=== PATIENT | female | born 1990 | race African-American/Black ===

== ENCOUNTER 2020-12-10 17:51 | Emergency (ER) | payer SELFPAY ==
[2020-12-10] MEDS ORDERED: DIPHENHYDRAMINE 50 MG/ML VIAL ONE (19:29)
[2020-12-10] MEDS ORDERED: METHYLPREDNISOLONE 125 MG INJ ONE (19:29)
[2020-12-10] MEDS ORDERED: FAMOTIDINE 20 MG TAB ONE (19:30)
--- NOTE | 2020-12-10 20:07 | ER ---
Nurse's Notes [facility] Name: Andrew Jolly Age: 30 yrs Sex: Female : 1990 Arrival Date: 12/10/2020 Time: 17:53 Bed 13 Private MD: Diagnosis: Allergic urticaria Presentation: 12/10 18:26 Chief complaint: Patient states: starting last night i started itching. i took Benadryl tw2 around 4 pm today and it is not helping. I am at [facility] and its new so i dont know if it is my medication or what. but i normally take the same medicine so i dont think it is that. but really i am just itching all over. earlier i felt my throat was itching. Coronavirus screen: At this time, the client does not indicate any symptoms associated with coronavirus-19. Ebola Screen: Patient denies travel to an Ebola-affected area in the 21 days before illness onset. Onset: The symptoms/episode began/occurred yesterday. Anaphylaxis evaluation, the patient reports or I have noted the following symptoms which indicate a significant risk of anaphylaxis: lump in the throat which may suggest laryngeal edema urticaria. Initial Sepsis Screen: Does the patient meet any 2 criteria? No. Patient's initial sepsis screen is negative. Does the patient have a suspected source of infection? No. Patient's initial sepsis screen is negative. Risk Assessment: Do you want to hurt yourself or someone else? Patient reports no desire to harm self or others. Onset of symptoms was December 10, 2020. 18:26 Method Of Arrival: Ambulatory tw2 18:26 Acuity: JOYCE 4 tw2 Triage Assessment: 18:33 General: Appears in no apparent distress. uncomfortable, obese, Behavior is calm, tw2 cooperative, appropriate for age. Pain: Complains of pain in right leg and left leg. Derm: Reports increased itching. 18:33 Derm: Rash noted that is raised, urticaria, on right arm and left arm Reports "these tw2 raised itching spots all over my arms, legs and my back, and i also noticed them on my neck". 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 - Social history:: Smoking status: Patient denies any tobacco usage or history of. Screenin:42 Abuse screen: Denies threats or abuse. Nutritional screening: No deficits noted. tw2 Tuberculosis screening: No symptoms or risk factors identified. Fall Risk None identified. Assessment: 18:26 Respiratory: Airway is patent Respiratory effort is even, unlabored. tw2 20:00 Respiratory: No deficits noted. es2 Vital Signs: 18:26 BP 132 / 94; Pulse 99; Resp 17; Temp 98.2(TE); Pulse Ox 100% on R/A; Weight 133.81 kg tw2 (R); Height 5 ft. 7 in. (170.18 cm); 18:26 Body Mass Index 46.20 (133.81 kg, 170.18 cm) tw2 ED Course: 17:53 Patient arrived in ED. mr 18:30 Triage completed. tw2 18:33 Arm band placed on. tw2 18:34 Bed in low position. Call light in reach. tw2 18:39 Aditi Peña, TERESO is Primary Nurse. es2 18:41 Luke Gibson PA is PHCP. jr8 18:41 Apolinar Arora MD is Attending Physician. jr8 20:00 No provider procedures requiring assistance completed. es2 20:20 Patient did not have IV access during this emergency room visit. es2 Administered Medications: 19:11 Drug: Benadryl (diphenhydrAMINE) 50 mg Route: IM; Site: right deltoid; wg 19:11 Drug: Pepcid (famotidine) 20 mg Route: PO; wg 19:12 Drug: SOLU-Medrol (methylPREDNISolone sodium succinate) 125 mg Route: IM; Site: right wg deltoid; Outcome: 20:06 Discharge ordered by . jr8 21:04 Discharged to home ambulatory. es2 21:04 Condition: stable 21:04 Discharge instructions given to patient, Instructed on discharge instructions, Demonstrated understanding of medications, Prescriptions given X 1. 21:05 Patient left the ED. es2 Signatures: Fanny Phillips Josh, PA PA jr8 Marianna Decker RN RN tw2 Doug Ascencio RN wg Smith, Elizabeth, RN RN es2
--- NOTE | 2020-12-10 20:07 | EDPHYS ---
Physician Documentation [facility] Name: Andrew Jolly Age: 30 yrs Sex: Female : 1990 Arrival Date: 12/10/2020 Time: 17:53 Bed 13 Private MD: ED Physician Apolinar Arora HPI: 12/10 20:00 This 30 yrs old Black Female presents to ER via Ambulatory with complaints of Allergic jr8 Reaction. 20:00 This is a 30-year-old female that presented with hives to arms, chest, back. Patient jr8 stated that it started last night. Unable to identify source or reason as to the hives. Stated that it is continued though despite [id number] Benadryl. Denies any other symptoms at this time.. 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 - Social history:: Smoking status: Patient denies any tobacco usage or history of. ROS: 20:00 Eyes: Negative for injury, pain, redness, and discharge, ENT: Negative for injury, jr8 pain, and discharge, Neck: Negative for injury, pain, and swelling, Cardiovascular: Negative for chest pain, palpitations, and edema, Respiratory: Negative for shortness of breath, cough, wheezing, and pleuritic chest pain, Abdomen/GI: Negative for abdominal pain, nausea, vomiting, diarrhea, and constipation, Back: Negative for injury and pain, MS/Extremity: Negative for injury and deformity, Neuro: Negative for headache, weakness, numbness, tingling, and seizure. 20:00 Skin: Positive for rash. Exam: 20:00 Constitutional: This is a well developed, well nourished patient who is awake, alert, jr8 and in no acute distress. Cardiovascular: Regular rate and rhythm with a normal S1 and S2. No gallops, murmurs, or rubs. Normal PMI, no JVD. No pulse deficits. Respiratory: Lungs have equal breath sounds bilaterally, clear to auscultation and percussion. No rales, rhonchi or wheezes noted. No increased work of breathing, no retractions or nasal flaring. Abdomen/GI: Soft, non-tender, with normal bowel sounds. No distension or tympany. No guarding or rebound. No evidence of tenderness throughout. Back: No spinal tenderness. No costovertebral tenderness. Full range of motion. MS/ Extremity: Pulses equal, no cyanosis. Neurovascular intact. Full, normal range of motion. Neuro: Awake and alert, GCS 15, oriented to person, place, time, and situation. Cranial nerves II-XII grossly intact. Motor strength 5/5 in all extremities. Sensory grossly intact. Cerebellar exam normal. Normal gait. 20:00 Skin: rash a moderate rash is noted, rash can be described as urticarial, on the back, chest, right arm and left arm. Vital Signs: 18:26 BP 132 / 94; Pulse 99; Resp 17; Temp 98.2(TE); Pulse Ox 100% on R/A; Weight 133.81 kg tw2 (R); Height 5 ft. 7 in. (170.18 cm); 18:26 Body Mass Index 46.20 (133.81 kg, 170.18 cm) tw2 MDM: 18:41 Patient medically screened. jr8 20:00 Data reviewed: vital signs, nurses notes. Data interpreted: Pulse oximetry: on room air jr8 is 100 %. Interpretation: normal. Counseling: I had a detailed discussion with the patient and/or guardian regarding: the historical points, exam findings, and any diagnostic results supporting the discharge/admit diagnosis, the need for outpatient follow up, a family practitioner. Response to treatment: the patient's symptoms have markedly improved after treatment. Administered Medications: 19:11 Drug: Benadryl (diphenhydrAMINE) 50 mg Route: IM; Site: right deltoid; wg 19:11 Drug: Pepcid (famotidine) 20 mg Route: PO; wg 19:12 Drug: SOLU-Medrol (methylPREDNISolone sodium succinate) 125 mg Route: IM; Site: right wg deltoid; Disposition: 23:49 Co-signature as Attending Physician, Apolinar Arora MD I agree with the assessment and kdr plan of care. Disposition Summary: 12/10/20 20:06 Discharge Ordered Location: Home jr8 Problem: new jr8 Symptoms: have improved jr8 Condition: Stable jr8 Diagnosis - Allergic urticaria jr8 Followup: jr8 - With: Private Physician - When: 2 - 3 days - Reason: Recheck today's complaints, Continuance of care, Re-evaluation by your physician Discharge Instructions: - Discharge Summary Sheet jr8 - Hives jr8 Forms: - Medication Reconciliation Form jr8 - Thank You Letter jr8 - Antibiotic Education jr8 - Prescription Opioid Use jr8 Prescriptions: - Medrol (Gildardo) 4 mg Oral Tablets, Dose Pack - take 1 tablet by ORAL route as directed - follow package instructions; 1 jr8 packet; Refills: 0, Product Selection Permitted Signatures: Apolinar Arora MD MD kdr Roszak, Josh, PA PA jr8 Marianna Decker RN RN tw2 Doug Ascencio RN wg
[2020-12-10 21:24] VITALS: BP 132/94; TEMP 98.2; O2SAT 100
== END 2020-12-10 21:05 | disposition home or self-care (01) ==
LOC: ER 17:51
DX: L50.0 Allergic urticaria (principal); I10 Essential (primary) hypertension; Z88.1 Allergy status to other antibiotic agents
CPT/HCPCS: 96372; 99283; J1200; J2930

== ENCOUNTER 2020-12-11 20:21 | Emergency (ER) | payer SELFPAY ==
[2020-12-11 21:33] LABS: Urine Blood Negative (Negative); Urine Glucose Negative (Negative); Urine Protein Negative (Negative); Urine Specific Gravity 1.025 (1.005-1.030)
[2020-12-11 21:44] LABS: Urine Specific Gravity/Preg 1.025 (1.005-1.030)
[2020-12-11] MEDS ORDERED: METHYLPREDNISOLONE 125 MG INJ ONE (21:46)
[2020-12-11] MEDS ORDERED: ACETAMINOPHEN 500 MG TAB ONE (21:47)
[2020-12-11] MEDS ORDERED: FAMOTIDINE 20 MG TAB ONE (21:47)
[2020-12-11] MEDS ORDERED: DIPHENHYDRAMINE 25 MG TAB/CAP ONE (21:47)
--- NOTE | 2020-12-11 22:00 | RAD REPORT ---
EXAM DESCRIPTION: RAD - Knee Left 3 View - 12/11/2020 9:53 pm CLINICAL HISTORY: PAIN COMPARISON: No comparisons FINDINGS: No bone or joint abnormality is detected. No joint effusion present.
--- NOTE | 2020-12-11 22:01 | RAD REPORT ---
EXAM DESCRIPTION: RAD - Foot Left 3 View - 12/11/2020 9:53 pm CLINICAL HISTORY: PAIN COMPARISON: No comparisons FINDINGS: Small posterior calcaneal spur. No fracture or dislocation.
--- NOTE | 2020-12-11 23:10 | EDPHYS ---
Physician Documentation [facility] Name: Andrew Jolly Age: 30 yrs Sex: Female : 1990 Arrival Date: 12/11/2020 Time: 20:40 Bed 10 Private MD: ED Physician Hank Carroll HPI: 12/11 21:20 This 30 yrs old Black Female presents to ER via Wheelchair with complaints of Itching, cp Fall Injury, Knee Injury, Knee Pain. 21:20 The rash is located on the body diffusely. cp 21:20 The patient's rash thought to be caused by an unknown cause. cp 21:20 The rash can be described as itching. Onset: The symptoms/episode began/occurred cp yesterday, Patient reports she was seen in this ED yesterday for rash and prescribed medrol dose addison. Patient reports she sustained fall attempting to get into vehicle to come to ED causing injury and pain to left knee and left foot. 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 - Social history:: Smoking status: Patient denies any tobacco usage or history of. Patient/guardian denies using alcohol, street drugs. ROS: 21:30 Constitutional: Negative for body aches, chills, fever, poor PO intake. cp 21:30 Eyes: Negative for injury, pain, redness, and discharge. cp 21:30 ENT: Negative for drainage from ear(s), ear pain, sore throat, difficulty swallowing, difficulty handling secretions. 21:30 Cardiovascular: Negative for chest pain, edema, palpitations. 21:30 Respiratory: Negative for cough, shortness of breath, wheezing. 21:30 Abdomen/GI: Negative for abdominal pain, nausea, vomiting, and diarrhea. 21:30 MS/extremity: Positive for pain, of the left knee and left foot, Negative for decreased range of motion, deformity, paresthesias. 21:30 Skin: Positive for rash, diffusely. 21:30 Neuro: Negative for altered mental status, dizziness, headache, syncope, weakness. 21:30 All other systems are negative. Exam: 21:35 Constitutional: The patient appears in no acute distress, alert, awake, cp non-diaphoretic, non-toxic, well developed, well nourished, obese, uncomfortable. 21:35 Head/Face: Normocephalic, atraumatic. cp 21:35 ENT: External ear(s): are unremarkable, Nose: is normal, Mouth: Lips: moist, Oral mucosa: pink and intact, moist, Posterior pharynx: Airway: no evidence of obstruction, patent. 21:35 Chest/axilla: Inspection: normal. 21:35 Cardiovascular: Rate: normal, Rhythm: regular. 21:35 Respiratory: the patient does not display signs of respiratory distress, Respirations: normal, no use of accessory muscles, no retractions, labored breathing, is not present, Breath sounds: are clear throughout, no decreased breath sounds, no stridor, no wheezing. 21:35 Abdomen/GI: Exam negative for discomfort, distension, guarding, Inspection: abdomen appears normal. 21:35 Back: pain, is absent, ROM is normal. 21:35 Skin: rash can be described as hives, on the right arm and left arm. 21:35 Musculoskeletal/extremity: Extremities: grossly normal except: noted in the left knee: cp abrasion, pain, tenderness, There is no evidence of decreased ROM, deformity, noted in the left foot: pain, no evidence of decreased ROM, deformity, swelling, Pulses: noted to be 2+ in the left dorsalis pedis artery, the left leg Sensation intact. Vital Signs: 20:44 BP 149 / 97 LA Sitting (auto/lg); Pulse 89; Resp 18 S; Temp 98.6; Pulse Ox 100% ; sj1 Weight 131.54 kg (R); Height 5 ft. 7 in. (170.18 cm) (R); Pain 8/10; 21:15 BP 139 / 92; Pulse 91; Resp 19; Pulse Ox 100% on R/A; Pain 8/10; ld1 20:44 Body Mass Index 45.42 (131.54 kg, 170.18 cm) 1 Jaycob Coma Score: 21:09 Eye Response: spontaneous(4). Verbal Response: oriented(5). Motor Response: obeys sj1 commands(6). Total: 15. Trauma Score (Adult): 21:09 Eye Response: spontaneous(1); Verbal Response: oriented(1); Motor Response: obeys sj1 commands(2); Systolic BP: > 89 mm Hg(4); Respiratory Rate: 10 to 29 per min(4); Jaycob Score: 15; Trauma Score: 12 MDM: 21:07 Patient medically screened. cp 23:08 Data reviewed: vital signs, nurses notes, radiologic studies, plain films. cp 23:08 Differential diagnosis: allergic urticaria, hive, cellulitis, foot fracture, knee cp fracture. Test interpretation: by ED physician or midlevel provider: xrays of left knee negative for fracture and xrays of left foot negative for fracture. Counseling: I had a detailed discussion with the patient and/or guardian regarding: the historical points, exam findings, and any diagnostic results supporting the discharge/admit diagnosis, radiology results, to return to the emergency department if symptoms worsen or persist or if there are any questions or concerns that arise at home. Response to treatment: the patient's symptoms have markedly improved after treatment, VSS. Itching improved with meds. Will discharge to home for continued monitoring. 12/11 21:32 Order name: Urine Dipstick-Ancillary; Complete Time: 21:57 EDMS 12/11 21:34 Order name: Urine --Ancillary (enter results); Complete Time: 21:57 tt3 12/11 21:16 Order name: XRAY Knee LEFT 3 view; Complete Time: 22:56 cp 12/11 22:56 Interpretation: Report reviewed. 12/11 21:16 Order name: XRAY Foot LEFT 3 View; Complete Time: 22:56 cp 12/11 22:56 Interpretation: Reviewed report. 12/11 21:16 Order name: Urine Dipstick-Ancillary (obtain specimen); Complete Time: 21:33 cp 12/11 21:16 Order name: Urine Test (obtain specimen); Complete Time: 21:33 cp 12/11 21:57 Order name: Wound dressing; Complete Time: 21:59 cp 12/11 22:56 Order name: Alirio Wrap; Complete Time: 23:03 cp 12/11 22:56 Order name: Crutches; Complete Time: 23:03 cp Administered Medications: 21:33 Drug: SOLU-Medrol (methylPREDNISolone sodium succinate) 125 mg Route: IM; Site: right ld1 deltoid; 21:33 Drug: Benadryl (diphenhydrAMINE) 50 mg Route: PO; ld1 21:33 Drug: Pepcid (famotidine) 20 mg Route: PO; ld1 21:33 Drug: Tylenol 1000 mg Route: PO; ld1 Disposition Summary: 12/11/20 23:09 Discharge Ordered Location: Home cp Problem: new cp Symptoms: have improved cp Condition: Stable cp Diagnosis - Urticaria, unspecified cp - Pain in left foot - from fall cp - Abrasion, left knee cp - Pain in left knee - from fall cp Followup: cp - With: Clement Cespedes MD - When: 2 - 3 days - Reason: allergic hives Discharge Instructions: - Discharge Summary Sheet cp - Hives cp - Acute Knee Pain, Adult cp - Foot Pain cp Forms: - Medication Reconciliation Form cp - Thank You Letter cp - Antibiotic Education cp - Prescription Opioid Use cp Prescriptions: - Pepcid 20 mg Oral Tablet - take 1 tablet by ORAL route every 12 hours for 10 days; 20 tablet; Refills: 0, cp Product Selection Permitted - Prednisone 20 mg Oral Tablet - take 2 tablets by ORAL route once daily for 5 days then take 1 tablet daily for cp 3 days, then 1/2 tablet daily for 2 days. Start morning of 12-12-2020; 14 tablet; Refills: 0, Product Selection Permitted Signatures: Dispatcher [employer] EDUmair Alcantar PA PA cp Nayely Hernandez, RN RN ld1 Isabella George RN RN sj1
--- NOTE | 2020-12-11 23:10 | ER ---
Nurse's Notes [facility] Name: Andrew Jolly Age: 30 yrs Sex: Female : 1990 Arrival Date: 12/11/2020 Time: 20:40 Bed 10 Private MD: Diagnosis: Urticaria, unspecified;Pain in left foot-from fall;Abrasion, left knee;Pain in left knee-from fall Presentation: 12/11 20:44 Chief complaint: Patient states: was seen yesterday for itching/hives all over body. pt sj1 fell trying to get in van. abrasion to left knee. c/o knee and toe pain on left foot. denies LOC. Coronavirus screen: Vaccine status: Patient reports receiving the 1st dose of the Covid vaccine. Date October 10, 2020. Ebola Screen: Patient negative for fever greater than or equal to 101.5 degrees Fahrenheit, and additional compatible Ebola Virus Disease symptoms Patient denies exposure to infectious person. Patient denies travel to an Ebola-affected area in the 21 days before illness onset. No symptoms or risks identified at this time. Initial Sepsis Screen: Does the patient meet any 2 criteria? No. Patient's initial sepsis screen is negative. Does the patient have a suspected source of infection? No. Patient's initial sepsis screen is negative. Risk Assessment: Do you want to hurt yourself or someone else? Patient reports no desire to harm self or others. Onset of symptoms was December 09, 2020. 20:44 Method Of Arrival: Wheelchair sj1 20:44 Acuity: JOYCE 4 sj1 21:08 Care prior to arrival: None. Mechanism of Injury: Fall fell getting into van. Trauma sj1 event details: Injury occurred: December 11, 2020. Triage Assessment: 20:47 General: Appears uncomfortable, Behavior is calm, cooperative, appropriate for age. sj1 Pain: Complains of pain in left knee, left foot. 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 - Social history:: Smoking status: Patient denies any tobacco usage or history of. Patient/guardian denies using alcohol, street drugs. Screenin:49 Abuse screen: Denies threats or abuse. Denies injuries from another. Nutritional sj1 screening: No deficits noted. Tuberculosis screening: No symptoms or risk factors identified. Fall Risk Fall in past 12 months (25 points). Primary Survey: 21:07 NO uncontrolled hemorrhage observed. A: Airway: patent. Breathing/Chest: Respiratory sj1 pattern: regular, Respiratory effort: spontaneous, unlabored. Circulation: Pulses: palpable . Disability Alert. Exposure/Environment: Obvious injury(ies) are noted at this time: left knee, foot. Assessment: 21:15 General: Appears in no apparent distress. comfortable, Behavior is calm, cooperative, ld1 appropriate for age. Pain: Complains of pain in left knee and dorsum of left foot Pain does not radiate. Pain currently is 8 out of 10 on a pain scale. Quality of pain is described as stabbing, throbbing, Pain began 1 hour ago. Is continuous. Neuro: Level of Consciousness is awake, alert, obeys commands, Oriented to person, place, time, situation. Cardiovascular: Capillary refill < 3 seconds Patient's skin is warm and dry. Respiratory: Airway is patent Respiratory effort is even, unlabored, Respiratory pattern is regular, symmetrical. GI: Abdomen is non-distended, obese. : No signs and/or symptoms were reported regarding the genitourinary system. EENT: No signs and/or symptoms were reported regarding the EENT system. Derm: Hives to all extremities Reports itching. Musculoskeletal: No signs and/or symptoms reported regarding the musculoskeletal system. Vital Signs: 20:44 BP 149 / 97 LA Sitting (auto/lg); Pulse 89; Resp 18 S; Temp 98.6; Pulse Ox 100% ; sj1 Weight 131.54 kg (R); Height 5 ft. 7 in. (170.18 cm) (R); Pain 8/10; 21:15 BP 139 / 92; Pulse 91; Resp 19; Pulse Ox 100% on R/A; Pain 8/10; ld1 20:44 Body Mass Index 45.42 (131.54 kg, 170.18 cm) sj1 [place] Coma Score: 21:09 Eye Response: spontaneous(4). Verbal Response: oriented(5). Motor Response: obeys sj1 commands(6). Total: 15. Trauma Score (Adult): 21:09 Eye Response: spontaneous(1); Verbal Response: oriented(1); Motor Response: obeys sj1 commands(2); Systolic BP: > 89 mm Hg(4); Respiratory Rate: 10 to 29 per min(4); Jaycob Score: 15; Trauma Score: 12 ED Course: 20:40 Patient arrived in ED. wm 20:47 Triage completed. sj1 20:49 Patient has correct armband on for positive identification. sj1 20:55 Umair Acosta PA is PHCP. cp 20:55 Hank Carroll MD is Attending Physician. cp 21:09 Arm band placed on left wrist. Patient placed in an exam room. sj1 21:09 Patient maintains SpO2 saturation greater than 95% on room air. sj1 21:15 No provider procedures requiring assistance completed. ld1 21:53 XRAY Knee LEFT 3 view In Process Unspecified. EDMS 21:53 XRAY Foot LEFT 3 View In Process Unspecified. EDMS 21:58 Nayely Hernandez, TERESO is Primary Nurse. ld1 23:07 Clement Cespedes MD is Referral Physician. cp 23:35 Patient did not have IV access during this emergency room visit. ld1 Administered Medications: 21:33 Drug: SOLU-Medrol (methylPREDNISolone sodium succinate) 125 mg Route: IM; Site: right ld1 deltoid; 21:33 Drug: Benadryl (diphenhydrAMINE) 50 mg Route: PO; ld1 21:33 Drug: Pepcid (famotidine) 20 mg Route: PO; ld1 21:33 Drug: Tylenol 1000 mg Route: PO; ld1 Outcome: 23:09 Discharge ordered by . cp 23:11 Condition: stable ld1 23:11 Discharged to home ambulatory, with crutches. ld1 23:11 Discharge instructions given to patient, Instructed on discharge instructions, follow up and referral plans. medication usage, Demonstrated understanding of instructions, follow-up care, medications, Prescriptions given X 2. 23:35 Patient left the ED. ld1 Signatures: Dispatcher [employer] EDMS Umair Acosta PA PA cp Dibbern, Lauren, RN RN ld1 Radha Ramirez Sade, RN RN sj1 Corrections: (The following items were deleted from the chart) 21:07 20:44 Chief complaint: Patient states: was seen yesterday for itching/hives all over sj1 body. pt fell trying to get in van. abrasion to left knee. c/o knee and toe pain on left foot sj1
[2020-12-11 23:41] VITALS: TEMP 98.6; O2SAT 100
[2020-12-11 23:43] VITALS: BP 139/92
== END 2020-12-11 23:35 | disposition home or self-care (01) ==
LOC: ER 20:21
DX: S80.212A Abrasion, left knee, initial encounter (principal); L50.9 Urticaria, unspecified; M79.672 Pain in left foot; W17.89XA Other fall from one level to another, initial encounter; I10 Essential (primary) hypertension; F31.9 Bipolar disorder, unspecified; Z88.1 Allergy status to other antibiotic agents
CPT/HCPCS: 81003; 81025; 96372; 99284; J2930

== ENCOUNTER 2020-12-29 15:48 | Emergency (ER) | payer SELFPAY ==
--- NOTE | 2020-12-29 17:17 | RAD REPORT ---
EXAM DESCRIPTION: RAD - Chest Pa And Lat (2 Views) - 12/29/2020 5:04 pm CLINICAL HISTORY: Cough;Congestion COMPARISON: No comparisons FINDINGS: Lines: None. Lungs: No evidence of edema or pneumonia. Pleural: No significant pleural effusions or pneumothorax. Cardiac: The heart size is within normal limits. Bones: No acute fractures. Other: IMPRESSION: No acute cardiopulmonary disease.
--- NOTE | 2020-12-29 20:25 | EDPHYS ---
Physician Documentation [facility] Name: Andrew Jolly Age: 30 yrs Sex: Female : 1990 Arrival Date: 12/29/2020 Time: 15:48 Bed 11 Private MD: ED Physician Umair Miguel HPI: 12/29 20:45 This 30 yrs old Black Female presents to ER via Ambulatory with complaints of Chest kb Pain, Congestion. 20:45 The patient or guardian reports cough, that is intermittent, described as mild. Onset: kb The symptoms/episode began/occurred 4 day(s) ago. Severity of symptoms: At their worst the symptoms were mild, in the emergency department the symptoms are unchanged. Modifying factors: The symptoms are alleviated by nothing, the symptoms are aggravated by nothing. Associated signs and symptoms: Pertinent positives: chest pain, rhinorrhea, headache. The patient has not experienced similar symptoms in the past. The patient has not recently seen a physician. Pt reports chest pain, cough, congestion, runny nose and headache for 4-5 days. 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 - Social history:: Smoking status: Reported history of juuling and/or vaping. Patient denies any tobacco usage or history of. ROS: 20:42 Constitutional: Negative for fever, chills, and weight loss. kb 20:42 ENT: Positive for rhinorrhea, sinus congestion. 20:42 Cardiovascular: Positive for chest pain, Negative for edema, orthopnea, palpitations, paroxysmal nocturnal dyspnea. 20:42 Respiratory: Positive for cough, Negative for dyspnea on exertion, hemoptysis, orthopnea, pleurisy, shortness of breath, sputum production, wheezing. 20:42 Neuro: Positive for headache. 20:42 All other systems are negative. Exam: 20:42 Constitutional: This is a well developed, well nourished patient who is awake, alert, kb and in no acute distress. Head/Face: Normocephalic, atraumatic. ENT: Moist Mucous membranes Cardiovascular: Regular rate and rhythm with a normal S1 and S2. No gallops, murmurs, or rubs. No pulse deficits. Respiratory: Respirations even and unlabored. No increased work of breathing, no retractions or nasal flaring. Skin: Warm, dry with normal turgor. Normal color. MS/ Extremity: Pulses equal, no cyanosis. Neurovascular intact. Full, normal range of motion. Neuro: Awake and alert, GCS 15, oriented to person, place, time, and situation. Moves all extremities. Normal gait. Psych: Awake, alert, with orientation to person, place and time. Behavior, mood, and affect are within normal limits. Vital Signs: 16:13 BP 127 / 77; Pulse 78; Resp 17; Temp 98.0; Pulse Ox 100% ; Weight 131.09 kg; Height 5 ll1 ft. 7 in. (170.18 cm); Pain 9/10; 20:11 BP 132 / 74; jh5 20:11 Pulse 72; Resp 18; Pulse Ox 100% ; jh5 16:13 Body Mass Index 45.26 (131.09 kg, 170.18 cm) ll1 MDM: 17:57 Patient medically screened. kb 20:42 Data reviewed: vital signs, nurses notes. Data interpreted: Pulse oximetry: on room air kb is 100 %. Interpretation: normal. Counseling: I had a detailed discussion with the patient and/or guardian regarding: the historical points, exam findings, and any diagnostic results supporting the discharge/admit diagnosis, lab results, radiology results, the need for outpatient follow up, a family practitioner, to return to the emergency department if symptoms worsen or persist or if there are any questions or concerns that arise at home. 12/29 16:49 Order name: Flu kb 12/29 16:49 Order name: COVID-19 SARS RT PCR (Document "Date of Onset" if Symptomatic) kb 12/29 16:49 Order name: Chest Pa And Lat (2 Views) XRAY; Complete Time: 17:27 kb 12/29 16:50 Order name: Influenza Screen (A ; Complete Time: 19:38 EDMS 12/29 16:50 Order name: SARS-COV-2 RT PCR; Complete Time: 19:53 EDMS 12/29 19:28 Order name: Troponin (emerg Dept Use Only); Complete Time: 20:22 kb 12/29 17:00 Order name: EKG; Complete Time: 17:00 ll1 Administered Medications: No medications were administered Disposition: 12/30 11:39 Co-signature as Attending Physician, Umair Miguel MD I agree with the assessment and italo plan of care. Disposition Summary: 12/29/20 20:24 Discharge Ordered Location: Home kb Condition: Stable kb Diagnosis - Chest pain, unspecified kb Followup: kb - With: Emergency Department - When: As needed - Reason: Worsening of condition Followup: kb - With: Private Physician - When: 2 - 3 days - Reason: Recheck today's complaints, Continuance of care, Re-evaluation by your physician Discharge Instructions: - Discharge Summary Sheet kb - Nonspecific Chest Pain, Adult, [id number] kb Forms: - Medication Reconciliation Form kb - Thank You Letter kb - Antibiotic Education kb - Prescription Opioid Use kb Signatures: Dispatcher [employer] EDMS Darleen Castellon, SEATER ASSEMBLER-C SEATER ASSEMBLER-Umair Lopez MD MD cha Lewis, Lynsay, RN RN ll1
--- NOTE | 2020-12-29 20:25 | ER ---
Nurse's Notes [facility] Name: Andrew Jolly Age: 30 yrs Sex: Female : 1990 Arrival Date: 12/29/2020 Time: 15:48 Bed 11 Private MD: Diagnosis: Chest pain, unspecified Presentation: 12/29 16:13 Chief complaint: Patient states: CP, SOB for 5 days. No fever. Nasal congestion at 1 night. No N/V/D. At [facility]. Coronavirus screen: Vaccine status: Patient reports receiving the 2nd dose of the covid vaccine. Client denies travel out of the [place] in the last 14 days. congestion, difficulty breathing, fatigue, headache, muscle pain, runny nose, shaking with chills, shortness of breath, Client presents with at least one sign or symptom that may indicate coronavirus-19. Standard/surgical mask placed on the client. Ebola Screen: Patient denies travel to an Ebola-affected area in the 21 days before illness onset. Initial Sepsis Screen: Does the patient meet any 2 criteria? No. Patient's initial sepsis screen is negative. Does the patient have a suspected source of infection? Yes: Productive cough/pneumonia. Risk Assessment: Do you want to hurt yourself or someone else? Patient reports no desire to harm self or others. Onset of symptoms was December 23, 2020. 16:13 Method Of Arrival: Ambulatory [facility] 16:13 Acuity: JOYCE 3 ll1 Triage Assessment: 20:08 General: Appears in no apparent distress. comfortable, obese, Behavior is calm, jh5 cooperative. Pain: Denies pain. Cardiovascular: Reports chest pain, Capillary refill < 3 seconds Patient's skin is warm and dry. TRADEMARK PAR[place]GAL: 20:24 LMP 11/2020 jh5 Historical: - Allergies: 16:15 Bactrim; ll1 16:15 RISPERIDONE; ll1 - PMHx: 16:15 Bipolar disorder; depressive disorder; hidradnitssupperativa; Hypertensive disorder; ll1 - PSHx: 16:15 section; ll1 - Immunization history:: Client reports receiving the 2nd dose of the Covid vaccine. - Social history:: Smoking status: Reported history of juuling and/or vaping. Patient denies any tobacco usage or history of. Screenin:23 Abuse screen: Denies threats or abuse. Denies injuries from another. Nutritional jh5 screening: No deficits noted. Tuberculosis screening: No symptoms or risk factors identified. Fall Risk None identified. Assessment: 20:09 Pain: Pain does not radiate. Pain began 30 min ago. jh5 20:09 Reassessment: Pt is AAOX4, ambulatory, NAD, speech is clear, respirations even and jh5 unlabored. Pt is requesting crackers and tells staff; "THEY'RE IN THE FRONT, GO GET THEM. I BEEN HERE SINCE 3!". Pt is resting on stretcher in lowest, locked, position. Vital Signs: 16:13 BP 127 / 77; Pulse 78; Resp 17; Temp 98.0; Pulse Ox 100% ; Weight 131.09 kg; Height 5 ll1 ft. 7 in. (170.18 cm); Pain 9/10; 20:11 BP 132 / 74; jh5 20:11 Pulse 72; Resp 18; Pulse Ox 100% ; jh5 16:13 Body Mass Index 45.26 (131.09 kg, 170.18 cm) ll1 ED Course: 15:48 Patient arrived in ED. ds1 16:15 Triage completed. ll1 16:15 Arm band placed on. ll1 16:49 Darleen Castellon FNP-C is [facility]. kb 16:49 Umair Miguel MD is Attending Physician. kb 17:04 Chest Pa And Lat (2 Views) XRAY In Process Unspecified. EDMS 20:23 Patient has correct armband on for positive identification. Bed in low position. Side jh5 rails up X 1. 20:23 No provider procedures requiring assistance completed. Patient did not have IV access 5 during this emergency room visit. Patient maintains SpO2 saturation greater than 95% on room air. 20:24 Cardiac monitoring not applicable on this patient. jh5 Administered Medications: No medications were administered Outcome: 20:23 Condition: good jh5 20:23 Discharge instructions given to patient, friend. 20:24 Discharged to home ambulatory. jh5 20:24 Discharge ordered by . kb 20:28 Patient left the ED. 5 Signatures: Dispatcher [employer] EDAL Darleen Castellon FNP-C FNP-Ckb Sanford, Demi ds1 Israel Perez RN RN ll1 Yassine, Ramona, RN RN jh5
[2020-12-29 21:19] VITALS: TEMP 98; O2SAT 100
[2020-12-29 21:20] VITALS: BP 132/74
--- NOTE | 2020-12-30 11:48 | EKG ---
Test Date: 2020-12-29 Test Time: 16:19:03 [employer]: AGUSTÍN MEASUREMENT RESULTS: Intervals: Rate: 78 ME: 176 QRSD: 94 QT: 378 QTc: 430 [place]: P: 40 ME: 176 QRS: 87 T: 41 INTERPRETIVE STATEMENTS: Normal sinus rhythm Normal ECG No previous ECG available for comparison Electronically Signed On 12-30-20 11:46:13 CDT by Julian Vinson
--- OUTSIDE RECORDS SUMMARY | 2021-01-10 06:39 | XMS REPORT | Continuity of Care Document ---
:1990 Author Organization [facility] t Address [address] [place] [address] Care Team Providers Name Role Phone Pcp, Does Not Have A Primary Care Physician Only, Test Attending Clinician Unavailable Surekha COOPER, H Attending Clinician Rosalina IRBY Attending Clinician Unavailable Jacob Attending Clinician Unavailable Doctor Unassigned, Name Attending Clinician Unavailable Jacquelyn COOPER Attending Clinician Iraj Davison MD Attending Clinician Kirti Nelson MD Attending Clinician Po RN, A Attending Clinician Unavailable Arben Gamboa Attending Clinician Lisa RIDER, T Attending Clinician Unavailable Nurse, Urgent Attending Clinician Unavailable Unknown Attending Clinician Unavailable UNKNOWN Attending Clinician Unavailable Marlyn Samuel Attending Clinician Pcp, Does Not Have A Attending Clinician Nurse, Pcp Assessment Clinic Attending Clinician UnavailGer Lees MD Attending Clinician GER ZUNIGA Attending Clinician Unavailable STERLING Attending Clinician Unavailable Marita WEBER Attending Clinician Unavailable Physician, Primary or Family Admitting Clinician Unavailabl e Payers Payer Name Policy Type Policy Number Effective Date Expiration Date S ource Problems Condition Condition Condition Status Onset Resolution Last Treating Co mments Source Name Details Category Date Date Treatment Clinician Date Hidradenit Hidradenit Disease Active 2014-02 U nivers is is 1-14 [place] a of left 00 Medi hammad axilla axilla Branch Hidradenit Hidradenit Disease Active U nivers is is 2-26 [place] of suppurativ [place] 00 Medical [place] Obesity Obesity Disease Active Overview: Univ ers 5-31 Formattin ity of 00:00: g of this [place] 00 note Medical might be Branch different from the original. 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 seeing Dr. 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 seeing child adolescen t psychiatr y Allergies, Adverse Reactions, Alerts Allergy Allergy Status Severity Reaction(s) Onset Inactive Treating Comm ents Source Name Type Date Date Clinician sulfamet DA Active [place] VOMITING [facility] h[facility] 8-27 Clear 00:00: [place] 00 [facility] sulfamet DA Active [place] [facility] hoxazole 8-27 Clear 00:00: [place] 00 [facility] sulfamet DA Active [place] 2019-0 [facility] hoxazole 4-07 [place] 00:00: d 00 [facility] sulfamet DA Active [place] VOMIT[place] 2018-0 [facility] hoxazole 4-07 Clear 00:00: [place] 00 [facility] sulfamet DA Active [place] 2017-1 [facility] hoxazole 1-19 Clear 00:00: [place] 00 [facility] SULFAMET DRUG Active High NAUSEA ONLY 2006-0 Uni vers HOXAZOLE 5-30 ity of -TRIMETH 00:00: [place] OPRIM 00 [facility] Sulfamet Propensi Active Nausea Only 2006-0 U nivers hoxazole ty to 5-30 ity of -Trimeth adverse 00:00: [place] oprim reaction Medical s to [place] drug Social History Social Habit Start Date Stop Date Quantity Comments Source Exposure to Not sure [facility] SARS-CoV-2 [place] [facility] (event) [place] History of Cigarette Smoker Universi ty of tobacco use [facility] Alcohol intake 2019-01-06 2019-01-06 Current University 00:00:00 00:00:00 non-drinker of [facility] alcohol (finding) Branch Tobacco use and 2013-01-16 2013-01-16 Never used Universit y of exposure 00:00:00 00:00:00 [facility] Sex Assigned At [birth year] Universit y of 00:00:00 00:00:00 [facility] Smoking Status Start Date Stop Date Source Former smoker 2013-01-16 00:00:00 2013-01-16 00:00:00 Universi [facility] Medications Ordered Filled Start Stop Current Ordering Indication Dosage Frequency Signature Comments Components Source Medication Medication Date Date Medication? Clinician (SIG) Name Name nicotine Yes 1{patch 1 Patch, Un pee[place]e (NICODERM) 07-18 } Topical, ity o f 21 mg/24 hr 01:45: Administer [place] patch 1 00 over 24 Medical Patch Hours, [place] Q24H, First dose on [facility] 07/17/20 at 2044, Until Discontinu ed, Routine traZODone No 50mg 50 mg, Unive rs (DESYREL) 07-18 05-21 Oral, ity of tablet 50 01:45: 01:41 ONCE, 1 [place] mg 00 :00 dose, [facility] 07/17/20 at Branch 2045, Routine diphenhydrA 2020- No 25mg 25 mg, Uni vers MINE -17 07-20 Oral, ity of (BENADRYL) 17:15: 17:15 ONCE, 1 [place] tablet 25 00 :00 dose, [facility] al mg 07/17/20 at Branch 1215, JARET diphenhydrA 2020- No 50mg 50 mg, Uni vers MINE -17 07-20 Oral, ity of (BENADRYL) 02:15: 01:11 ONCE, 1 [place] tablet 50 00 :00 dose, Wed Medic al mg 07/16/20 at Branch 2115, JARET cefTRIAXone 2020- No 1000mg 1,000 mg, Univers (ROCEPHIN) 07-17 Intramuscu it y of injection 01:15: 00:14 lar, ONCE, [place] 1,000 mg 00 :00 1 dose, Medical [facility] Branch 07/16/20 at 2015, JARET
Re ason for Anti-Infec tive: Documented Infection< br>Documen licha Infection Site: Urine
D uration of Therapy: Other (see Comments) traMADoL 2020- No 50mg 50 mg, Univer s (ULTRAM) 3-13 03-13 Oral, ONCE ity of tablet 50 01:00: 00:12 NOW, 1 [place] mg 00 :00 dose, [facility] 05/09/20 at Branch 1900, Routine clindamycin Yes [id number] 300mg Take 1 Univers 300 mg 3-12 capsule by ity of capsule 00:00: mouth 4 [place] 00 (four) Medical times Branch daily. traMADoL Yes [id number] 50mg Take 1 Univers (ULTRAM) 50 3-12 tablet by ity of mg tablet 00:00: mouth [place] 00 every 6 Medical (six) Branch hours as needed for Pain (scale 4-6). Indication s: acute pain, abscess of right axilla, I&D in ED clindamycin Yes [id number] 300mg Take 1 Univers 300 mg 3-12 capsule by ity of capsule 00:00: mouth 4 [place] 00 (four) Medical times Branch daily. traMADoL Yes [id number] 50mg Take 1 Univers (ULTRAM) 50 3-12 tablet by ity of mg tablet 00:00: mouth [place] 00 every 6 Medical (six) Branch hours as needed for Pain (scale 4-6). Indication s: acute pain, abscess of right axilla, I&D in ED clindamycin Yes [id number] 300mg Take 1 Univers 300 mg 3-12 capsule by ity of capsule 00:00: mouth (four) Medical times Branch daily. traMADoL Yes [id number] 50mg Take 1 Univers (ULTRAM) 50 3-12 tablet by ity of mg tablet 00:00: mouth [place] 00 every 6 Medical (six) Branch hours as needed for Pain (scale 4-6). Indication s: acute pain, abscess of right axilla, I&D in ED clindamycin Yes [id number] 300mg Take 1 Univers 300 mg 3-12 capsule by ity of capsule 00:00: mouth (four) Medical times Branch daily. traMADoL Yes [id number] 50mg Take 1 Univers (ULTRAM) 50 3-12 tablet by ity of mg tablet 00:00: mouth [place] 00 every 6 Medical (six) Branch hours as needed for Pain (scale 4-6). Indication s: acute pain, abscess of right axilla, I&D in ED clindamycin Yes [id number] 300mg Take 1 Univers 300 mg 3-12 capsule by ity of capsule 00:00: mouth (four) Medical times Branch daily. traMADoL Yes [id number] 50mg Take 1 Univers (ULTRAM) 50 3-12 tablet by ity of mg tablet 00:00: mouth [place] 00 every 6 Medical (six) Branch hours as needed for Pain (scale 4-6). Indication s: acute pain, abscess of right axilla, I&D in ED clindamycin Yes [id number] 300mg Take 1 Univers 300 mg 3-12 capsule by ity of capsule 00:00: mouth (four) Medical times Branch daily. traMADoL Yes [id number] 50mg Take 1 Univers (ULTRAM) 50 3-12 tablet by ity of mg tablet 00:00: mouth [place] 00 every 6 Medical (six) Branch hours as needed for Pain (scale 4-6). Indication s: acute pain, abscess of right axilla, I&D in ED clindamycin 0 Yes [id number] 300mg Take 1 Univers 300 mg 3-12 capsule by ity of capsule 00:00: mouth 4 [place] 00 (four) Medical times Branch daily. traMADoL 0 Yes [id number] 50mg Take 1 Univers (ULTRAM) 50 3-12 tablet by ity of mg tablet 00:00: mouth [place] 00 every 6 Medical (six) Branch hours as needed for Pain (scale 4-6). Indication s: acute pain, abscess of right axilla, I&D in ED clindamycin 0 Yes [id number] 300mg Take 1 Univers 300 mg 3-12 capsule by ity of capsule 00:00: mouth 4 [place] 00 (four) Medical times Branch daily. traMADoL Yes [id number] 50mg Take 1 Univers (ULTRAM) 50 3-12 tablet by ity of mg tablet 00:00: mouth [place] 00 every 6 Medical (six) Branch hours as needed for Pain (scale 4-6). Indication s: acute pain, abscess of right axilla, I&D in ED benzonatate Yes [id number] 100mg Take 1 Univers 100 mg 2-19 capsule by ity of capsule 00:00: mouth 3 [place] 00 (three) Medical times Branch daily as needed for Cough. albuterol 0 Yes [id number] 2{puff} Inhale 2 Univers 90 2-19 Puffs ity of mcg/actuati 00:00: every 4 [place] inhaler 00 (four) Medical hours as Branch needed for Wheezing or Shortness of Breath. azithromyci 0 Yes [id number] 250mg Take 1 Univers n 250 mg 2-19 tablet by ity of tablet 00:00: mouth [place] 00 daily. Medical Take 500 Branch mg day 1, then 250 mg days 2 to 5. hydroCHLORO 2020-0 Yes [id number] 12.5mg Take 1 Univers thiazide 2-19 tablet by ity of 12.5 mg 00:00: mouth [place] tablet 00 daily. Medical Branch benzonatate 0 Yes [id number] 100mg Take 1 Univers 100 mg 2-19 capsule by ity of capsule 00:00: mouth 3 [place] 00 (three) Medical times Branch daily as needed for Cough. albuterol 0 Yes [id number] 2{puff} Inhale 2 Univers 90 2-19 Puffs ity of mcg/actuati 00:00: every 4 [place] inhaler 00 (four) Medical hours as Branch needed for Wheezing or Shortness of Breath. azithromyci 0 Yes [id number] 250mg Take 1 Univers n 250 mg 2-19 tablet by ity of tablet 00:00: mouth [place] 00 daily. Medical Take 500 Branch mg day 1, then 250 mg days 2 to 5. hydroCHLORO 2020-0 Yes [id number] 12.5mg Take 1 Univers thiazide 2-19 tablet by ity of 12.5 mg 00:00: mouth [place] tablet 00 daily. Medical Branch benzonatate 0 Yes [id number] 100mg Take 1 Univers 100 mg 2-19 capsule by ity of capsule 00:00: mouth 3 [place] 00 (three) Medical times Branch daily as needed for Cough. albuterol Yes [id number] 2{puff} Inhale 2 Univers 90 2-19 Puffs ity of mcg/actuati 00:00: every 4 [place] inhaler 00 (four) Medical hours as Branch needed for Wheezing or Shortness of Breath. azithromyci 0 Yes [id number] 250mg Take 1 Univers n 250 mg 2-19 tablet by ity of tablet 00:00: mouth [place] 00 daily. Medical Take 500 Branch mg day 1, then 250 mg days 2 to 5. hydroCHLORO 2020-0 Yes [id number] 12.5mg Take 1 Univers thiazide 2-19 tablet by ity of 12.5 mg 00:00: mouth [place] tablet 00 daily. Medical Branch benzonatate 2020-0 Yes [id number] 100mg Take 1 Univers 100 mg 2-19 capsule by ity of capsule 00:00: mouth 3 [place] 00 (three) Medical times Branch daily as needed for Cough. albuterol 2020-0 Yes [id number] 2{puff} Inhale 2 Univers 90 2-19 Puffs ity of mcg/actuati 00:00: every 4 [place] inhaler 00 (four) Medical hours as Branch needed for Wheezing or Shortness of Breath. azithromyci 2020-0 Yes [id number] 250mg Take 1 Univers n 250 mg 2-19 tablet by ity of tablet 00:00: mouth [place] 00 daily. Medical Take 500 Branch mg day 1, then 250 mg days 2 to 5. hydroCHLORO 2020-0 Yes [id number] 12.5mg Take 1 Univers thiazide 2-19 tablet by ity of 12.5 mg 00:00: mouth [place] tablet 00 daily. [facility] benzonatate 2020-0 Yes [id number] 100mg Take 1 Univers 100 mg 2-19 capsule by ity of capsule 00:00: mouth 3 [place] 00 (three) Medical times Branch daily as needed for Cough. albuterol 2020-0 Yes [id number] 2{puff} Inhale 2 Univers 90 2-19 Puffs ity of mcg/actuati 00:00: every 4 [place] inhaler 00 (four) Medical hours as Branch needed for Wheezing or Shortness of Breath. azithromyci 0 Yes [id number] 250mg Take 1 Univers n 250 mg 2-19 tablet by ity of tablet 00:00: mouth [place] 00 daily. Medical Take 500 Branch mg day 1, then 250 mg days 2 to 5. hydroCHLORO 2020-0 Yes [id number] 12.5mg Take 1 Univers thiazide 2-19 tablet by ity of 12.5 mg 00:00: mouth [place] tablet 00 daily. [facility] benzonatate 2020-0 Yes [id number] 100mg Take 1 Univers 100 mg 2-19 capsule by ity of capsule 00:00: mouth 3 [place] 00 (three) Medical times Branch daily as needed for Cough. albuterol 2020-0 Yes [id number] 2{puff} Inhale 2 Univers 90 2-19 Puffs ity of mcg/actuati 00:00: every 4 [place] inhaler 00 (four) Medical hours as Branch needed for Wheezing or Shortness of Breath. azithromyci 2020-0 Yes [id number] 250mg Take 1 Univers n 250 mg 2-19 tablet by ity of tablet 00:00: mouth [place] 00 daily. Medical Take 500 Branch mg day 1, then 250 mg days 2 to 5. hydroCHLORO 2020-0 Yes [id number] 12.5mg Take 1 Univers thiazide 2-19 tablet by ity of 12.5 mg 00:00: mouth [place] tablet 00 daily. [facility] benzonatate 2020-0 Yes [id number] 100mg Take 1 Univers 100 mg 2-19 capsule by ity of capsule 00:00: mouth 3 [place] 00 (three) Medical times Branch daily as needed for Cough. albuterol 0 Yes [id number] 2{puff} Inhale 2 Univers 90 2-19 Puffs ity of mcg/actuati 00:00: every 4 [place] inhaler 00 (four) Medical hours as Branch needed for Wheezing or Shortness of Breath. azithromyci 0 Yes [id number] 250mg Take 1 Univers n 250 mg 2-19 tablet by ity of tablet 00:00: mouth [place] 00 daily. Medical Take 500 Branch mg day 1, then 250 mg days 2 to 5. hydroCHLORO 2020-0 Yes [id number] 12.5mg Take 1 Univers thiazide 2-19 tablet by ity of 12.5 mg 00:00: mouth [place] tablet 00 daily. Medical Branch benzonatate 2020-0 Yes [id number] 100mg Take 1 Univers 100 mg 2-19 capsule by ity of capsule 00:00: mouth 3 [place] (three) Medical times Branch daily as needed for Cough. albuterol 2020-0 Yes [id number] 2{puff} Inhale 2 Univers 90 2-19 Puffs ity of mcg/actuati 00:00: every 4 [place] inhaler 00 (four) Medical hours as Branch needed for Wheezing or Shortness of Breath. azithromyci 2020-0 Yes [id number] 250mg Take 1 Univers n 250 mg 2-19 tablet by ity of tablet 00:00: mouth [place] 00 daily. Medical Take 500 Branch mg day 1, then 250 mg days 2 to 5. hydroCHLORO 2020-0 Yes [id number] 12.5mg Take 1 Univers thiazide 2-19 tablet by ity of 12.5 mg 00:00: mouth [place] tablet 00 daily. Medical Branch benzonatate 2020-0 Yes [id number] 100mg Take 1 Univers 100 mg 2-19 capsule by ity of capsule 00:00: mouth 3 [place] 00 (three) Medical times Branch daily as needed for Cough. albuterol 2020-0 Yes [id number] 2{puff} Inhale 2 Univers 90 2-19 Puffs ity of mcg/actuati 00:00: every 4 [place] inhaler 00 (four) Medical hours as Branch needed for Wheezing or Shortness of Breath. azithromyci 2020-0 Yes [id number] 250mg Take 1 Univers n 250 mg 2-19 tablet by ity of tablet 00:00: mouth [place] 00 daily. Medical Take 500 Branch mg day 1, then 250 mg days 2 to 5. hydroCHLORO 2020-0 Yes [id number] 12.5mg Take 1 Univers thiazide 2-19 tablet by ity of 12.5 mg 00:00: mouth [place] tablet 00 daily. Medical Branch benzonatate 0 Yes [id number] 100mg Take 1 Univers 100 mg 2-19 capsule by ity of capsule 00:00: mouth 3 [place] 00 (three) Medical times Branch daily as needed for Cough. albuterol 0 Yes [id number] 2{puff} Inhale 2 Univers 90 2-19 Puffs ity of mcg/actuati 00:00: every 4 [place] inhaler 00 (four) Medical hours as Branch needed for Wheezing or Shortness of Breath. azithromyci 0 Yes [id number] 250mg Take 1 Univers n 250 mg 2-19 tablet by ity of tablet 00:00: mouth [place] 00 daily. Medical Take 500 Branch mg day 1, then 250 mg days 2 to 5. hydroCHLORO 2020-0 Yes [id number] 12.5mg Take 1 Univers thiazide 2-19 tablet by ity of 12.5 mg 00:00: mouth [place] tablet 00 daily. Medical Branch benzonatate 2020-0 Yes [id number] 100mg Take 1 Univers 100 mg 2-19 capsule by ity of capsule 00:00: mouth 3 [place] 00 (three) Medical times Branch daily as needed for Cough. albuterol 2020-0 Yes [id number] 2{puff} Inhale 2 Univers 90 2-19 Puffs ity of mcg/actuati 00:00: every 4 [place] inhaler 00 (four) Medical hours as Branch needed for Wheezing or Shortness of Breath. azithromyci 2020-0 Yes [id number] 250mg Take 1 Univers n 250 mg 2-19 tablet by ity of tablet 00:00: mouth [place] 00 daily. Medical Take 500 Branch mg day 1, then 250 mg days 2 to 5. hydroCHLORO 2020-0 Yes [id number] 12.5mg Take 1 Univers thiazide 2-19 tablet by ity of 12.5 mg 00:00: mouth [place] tablet 00 daily. Medical Branch benzonatate 0 Yes [id number] 100mg Take 1 Univers 100 mg 2-19 capsule by ity of capsule 00:00: mouth 3 [place] 00 (three) Medical times Branch daily as needed for Cough. albuterol Yes [id number] 2{puff} Inhale 2 Univers 90 2-19 Puffs ity of mcg/actuati 00:00: every 4 [place] inhaler 00 (four) Medical hours as Branch needed for Wheezing or Shortness of Breath. azithromyci Yes [id number] 250mg Take 1 Univers n 250 mg 2-19 tablet by ity of tablet 00:00: mouth [place] 00 daily. Medical Take 500 Branch mg day 1, then 250 mg days 2 to 5. hydroCHLORO Yes [id number] 12.5mg Take 1 Univers thiazide 2-19 tablet by ity of 12.5 mg 00:00: mouth [place] tablet 00 daily. Medical Branch benzonatate Yes [id number] 100mg Take 1 Univers 100 mg 2-19 capsule by ity of capsule 00:00: mouth 3 [place] 00 (three) Medical times Branch daily as needed for Cough. albuterol Yes [id number] 2{puff} Inhale 2 Univers 90 2-19 Puffs ity of mcg/actuati 00:00: every 4 [place] inhaler 00 (four) Medical hours as Branch needed for Wheezing or Shortness of Breath. azithromyci 0 Yes [id number] 250mg Take 1 Univers n 250 mg 2-19 tablet by ity of tablet 00:00: mouth [place] 00 daily. Medical Take 500 Branch mg day 1, then 250 mg days 2 to 5. hydroCHLORO 2020-0 Yes [id number] 12.5mg Take 1 Univers thiazide 2-19 tablet by ity of 12.5 mg 00:00: mouth [place] tablet 00 daily. Medical Branch benzonatate 0 Yes [id number] 100mg Take 1 Univers 100 mg 2-19 capsule by ity of capsule 00:00: mouth 3 [place] 00 (three) Medical times Branch daily as needed for Cough. albuterol Yes [id number] 2{puff} Inhale 2 Univers 90 2-19 Puffs ity of mcg/actuati 00:00: every 4 [place] inhaler 00 (four) Medical hours as Branch needed for Wheezing or Shortness of Breath. azithromyci Yes [id number] 250mg Take 1 Univers n 250 mg 2-19 tablet by ity of tablet 00:00: mouth [place] 00 daily. Medical Take 500 Branch mg day 1, then 250 mg days 2 to 5. hydroCHLORO Yes [id number] 12.5mg Take 1 Univers thiazide 2-19 tablet by ity of 12.5 mg 00:00: mouth [place] tablet 00 daily. Medical Branch naproxen Yes [id number] 375mg Take 1 U nivers 375 mg EC 3-09 tablet by ity o f tablet 00:00: mouth (two) Medical times Branch daily as needed for Pain (scale 4-6). naproxen Yes [id number] 375mg Take 1 U nivers 375 mg EC 3-09 tablet by ity o f tablet 00:00: mouth (two) Medical times Branch daily as needed for Pain (scale 4-6). naproxen Yes [id number] 375mg Take 1 U nivers 375 mg EC 3-09 tablet by ity o f tablet 00:00: mouth (two) Medical times Branch daily as needed for Pain (scale 4-6). naproxen Yes [id number] 375mg Take 1 U nivers 375 mg EC 3-09 tablet by ity o f tablet 00:00: mouth (two) Medical times Branch daily as needed for Pain (scale 4-6). naproxen Yes [id number] 375mg Take 1 U nivers 375 mg EC 3-09 tablet by ity o f tablet 00:00: mouth (two) Medical times Branch daily as needed for Pain (scale 4-6). naproxen Yes [id number] 375mg Take 1 U nivers 375 mg EC 3-09 tablet by ity o f tablet 00:00: mouth 2 (two) Medical times Branch daily as needed for Pain (scale 4-6). naproxen Yes [id number] 375mg Take 1 U nivers 375 mg EC 3-09 tablet by ity o f tablet 00:00: mouth 2 (two) Medical times Branch daily as needed for Pain (scale 4-6). naproxen Yes [id number] 375mg Take 1 U nivers 375 mg EC 3-09 tablet by ity o f tablet 00:00: mouth 2 (two) Medical times Branch daily as needed for Pain (scale 4-6). naproxen Yes [id number] 375mg Take 1 U nivers 375 mg EC 3-09 tablet by ity o f tablet 00:00: mouth (two) Medical times Branch daily as needed for Pain (scale 4-6). naproxen Yes [id number] 375mg Take 1 U nivers 375 mg EC 3-09 tablet by ity o f tablet 00:00: mouth (two) Medical times Branch daily as needed for Pain (scale 4-6). naproxen Yes [id number] 375mg Take 1 U nivers 375 mg EC 3-09 tablet by ity o f tablet 00:00: mouth (two) Medical times Branch daily as needed for Pain (scale 4-6). naproxen Yes [id number] 375mg Take 1 U nivers 375 mg EC 3-09 tablet by ity o f tablet 00:00: mouth (two) Medical times Branch daily as needed for Pain (scale 4-6). naproxen Yes [id number] 375mg Take 1 U nivers 375 mg EC 3-09 tablet by ity o f tablet 00:00: mouth (two) Medical times Branch daily as needed for Pain (scale 4-6). naproxen Yes [id number] 375mg Take 1 U nivers 375 mg EC 3-09 tablet by ity o f tablet 00:00: mouth 2 (two) Medical times Branch daily as needed for Pain (scale 4-6). naproxen Yes [id number] 375mg Take 1 U nivers 375 mg EC 3-09 tablet by ity o f tablet 00:00: mouth 2 (two) Medical times Branch daily as needed for Pain (scale 4-6). acetaminoph Yes [id number] 1{tbl} Take 1 Univers en-codeine 1-10 tablet by ity of (TYLENOL-CO 00:00: mouth [place] DEINE #3) 00 every 6 Medical 300-30 mg (six) Branch tablet hours as needed for Pain (scale 4-6). acetaminoph Yes [id number] 1{tbl} Take 1 Univers en-codeine 1-10 tablet by ity of (TYLENOL-CO 00:00: mouth [place] DEINE #3) 00 every 6 Medical 300-30 mg (six) Branch tablet hours as needed for Pain (scale 4-6). acetaminoph Yes [id number] 1{tbl} Take 1 Univers en-codeine 1-10 tablet by ity of (TYLENOL-CO 00:00: mouth [place] DEINE #3) 00 every 6 Medical 300-30 mg (six) Branch tablet hours as needed for Pain (scale 4-6). acetaminoph Yes [id number] 1{tbl} Take 1 Univers en-codeine 1-10 tablet by ity of (TYLENOL-CO 00:00: mouth [place] DEINE #3) 00 every 6 Medical 300-30 mg (six) Branch tablet hours as needed for Pain (scale 4-6). acetaminoph Yes [id number] 1{tbl} Take 1 Univers en-codeine 1-10 tablet by ity of (TYLENOL-CO 00:00: mouth [place] DEINE #3) 00 every 6 Medical 300-30 mg (six) Branch tablet hours as needed for Pain (scale 4-6). acetaminoph Yes [id number] 1{tbl} Take 1 Univers en-codeine 1-10 tablet by ity of (TYLENOL-CO 00:00: mouth [place] DEINE #3) 00 every 6 Medical 300-30 mg (six) Branch tablet hours as needed for Pain (scale 4-6). acetaminoph Yes [id number] 1{tbl} Take 1 Univers en-codeine 1-10 tablet by ity of (TYLENOL-CO 00:00: mouth [place] DEINE #3) 00 every 6 Medical 300-30 mg (six) Branch tablet hours as needed for Pain (scale 4-6). acetaminoph Yes [id number] 1{tbl} Take 1 Univers en-codeine 1-10 tablet by ity of (TYLENOL-CO 00:00: mouth [place] DEINE #3) 00 every 6 Medical 300-30 mg (six) Branch tablet hours as needed for Pain (scale 4-6). acetaminoph Yes [id number] 1{tbl} Take 1 Univers en-codeine 1-10 tablet by ity of (TYLENOL-CO 00:00: mouth [place] DEINE #3) 00 every 6 Medical 300-30 mg (six) Branch tablet hours as needed for Pain (scale 4-6). acetaminoph Yes [id number] 1{tbl} Take 1 Univers en-codeine 1-10 tablet by ity of (TYLENOL-CO 00:00: mouth [place] DEINE #3) 00 every 6 Medical 300-30 mg (six) Branch tablet hours as needed for Pain (scale 4-6). acetaminoph Yes [id number] 1{tbl} Take 1 Univers en-codeine 1-10 tablet by ity of (TYLENOL-CO 00:00: mouth [place] DEINE #3) 00 every 6 Medical 300-30 mg (six) Branch tablet hours as needed for Pain (scale 4-6). acetaminoph Yes [id number] 1{tbl} Take 1 Univers en-codeine 1-10 tablet by ity of (TYLENOL-CO 00:00: mouth [place] DEINE #3) 00 every 6 Medical 300-30 mg (six) Branch tablet hours as needed for Pain (scale 4-6). acetaminoph Yes [id number] 1{tbl} Take 1 Univers en-codeine 1-10 tablet by ity of (TYLENOL-CO 00:00: mouth [place] DEINE #3) 00 every 6 Medical 300-30 mg (six) Branch tablet hours as needed for Pain (scale 4-6). acetaminoph Yes [id number] 1{tbl} Take 1 Univers en-codeine 1-10 tablet by ity of (TYLENOL-CO 00:00: mouth [place] DEINE #3) 00 every 6 Medical 300-30 mg (six) Branch tablet hours as needed for Pain (scale 4-6). acetaminoph 2019-0 Yes [id number] 1{tbl} Take 1 [facility] en-codeine 1-10 tablet by ity of (TYLENOL-CO 00:00: mouth [place] DEINE #3) 00 every 6 Medical 300-30 mg (six) Branch tablet hours as needed for Pain (scale 4-6). ketorolac 2018-0 Yes 10mg Take 1 Un[facility] s 10 mg 9-30 tablet by ity of tablet 00:00: mouth [place] 00 every 8 Medical (eight) Branch hours. ketorolac 2018-0 Yes 10mg Take 1 [facility] 10 mg 9-30 tablet by ity of tablet 00:00: mouth [place] 00 every 8 Medical (eight) Branch hours. ketorolac 2018-0 Yes 10mg Take 1 [facility] 10 mg 9-30 tablet by ity of tablet 00:00: mouth [place] 00 every 8 Medical (eight) Branch hours. ketorolac 2018-0 Yes 10mg Take 1 [facility] 10 mg 9-30 tablet by ity of tablet 00:00: mouth [place] 00 every 8 Medical (eight) Branch hours. ketorolac 2018-0 Yes 10mg Take 1 Un[facility] 10 mg 9-30 tablet by ity of tablet 00:00: mouth [place] 00 every 8 Medical (eight) Branch hours. ketorolac 2018-0 Yes 10mg Take 1 Un[facility] 10 mg 9-30 tablet by ity of tablet 00:00: mouth [place] 00 every 8 Medical (eight) Branch hours. ketorolac 2018-0 Yes 10mg Take 1 [facility] 10 mg 9-30 tablet by ity of tablet 00:00: mouth [place] 00 every 8 Medical (eight) Branch hours. ketorolac 2018-0 Yes 10mg Take 1 [facility] 10 mg 9-30 tablet by ity of tablet 00:00: mouth [place] 00 every 8 Medical (eight) Branch hours. ketorolac 2018-0 Yes 10mg Take 1 Univer [facility] 10 mg 9-30 tablet by ity of tablet 00:00: mouth [place] 00 every 8 Medical (eight) Branch hours. ketorolac 2018-0 Yes 10mg Take 1 [facility] 10 mg 9-30 tablet by ity of tablet 00:00: mouth [place] 00 every 8 Medical (eight) Branch hours. ketorolac 2018-0 Yes 10mg Take 1 Un[facility] 10 mg 9-30 tablet by ity of tablet 00:00: mouth [place] 00 every 8 Medical (eight) Branch hours. ketorolac 2018-0 Yes 10mg Take 1 Un[facility] 10 mg 9-30 tablet by ity of tablet 00:00: mouth [place] 00 every 8 Medical (eight) Branch hours. ketorolac 2018-0 Yes 10mg Take 1 Un[facility] 10 mg 9-30 tablet by ity of tablet 00:00: mouth [place] 00 every 8 Medical (eight) Branch hours. ketorolac 2018-0 Yes 10mg Take 1 Un[facility] 10 mg 9-30 tablet by ity of tablet 00:00: mouth [place] 00 every 8 Medical (eight) Branch hours. ketorolac 2018-0 Yes 10mg Take 1 Un[facility] 10 mg 9-30 tablet by ity of tablet 00:00: mouth [place] 00 every 8 Medical (eight) Branch hours. acetaminoph 2018-0 Yes 1{tbl} Take 1 [facility] [place] en-codeine 3-27 tablet by ity of 300-30 mg 00:00: mouth [place] tablet 00 every 4 Medical (four) Branch hours as needed (pain). acetaminoph 2018-0 Yes 1{tbl} Take 1 [facility] [place] en-codeine 3-27 tablet by ity of 300-30 mg 00:00: mouth [place] tablet 00 every 4 Medical (four) Branch hours as needed (pain). acetaminoph 2018-0 Yes 1{tbl} Take 1 [facility] [place] en-codeine 3-27 tablet by ity of 300-30 mg 00:00: mouth [place] tablet 00 every 4 Medical (four) Branch hours as needed (pain). acetaminoph 2018-0 Yes 1{tbl} Take 1 [facility] [place] en-codeine 3-27 tablet by ity of 300-30 mg 00:00: mouth [place] tablet 00 every 4 Medical (four) Branch hours as needed (pain). acetaminoph 2018-0 Yes 1{tbl} Take 1 [facility] [place] en-codeine 3-27 tablet by ity of 300-30 mg 00:00: mouth [place] tablet 00 every 4 Medical (four) Branch hours as needed (pain). acetaminoph 2018-0 Yes 1{tbl} Take 1 [facility] [place] en-codeine 3-27 tablet by ity of 300-30 mg 00:00: mouth [place] tablet 00 every 4 Medical (four) Branch hours as needed (pain). acetaminoph 2018-0 Yes 1{tbl} Take 1 [facility] [place] en-codeine 3-27 tablet by ity of 300-30 mg 00:00: mouth [place] tablet 00 every 4 Medical (four) Branch hours as needed (pain). acetaminoph 2018-0 Yes 1{tbl} Take 1 [facility] [place] en-codeine 3-27 tablet by ity of 300-30 mg 00:00: mouth [place] tablet 00 every 4 Medical (four) Branch hours as needed (pain). acetaminoph 2018-0 Yes 1{tbl} Take 1 [facility] [place] en-codeine 3-27 tablet by ity of 300-30 mg 00:00: mouth [place] tablet 00 every 4 Medical (four) Branch hours as needed (pain). acetaminoph 2017-0 Yes 1{tbl} Take 1 [facility] [place] en-codeine 3-27 tablet by ity of 300-30 mg 00:00: mouth [place] tablet 00 every 4 Medical (four) Branch hours as needed (pain). acetaminoph 2018-0 Yes 1{tbl} Take 1 [facility] [place] en-codeine 3-27 tablet by ity of 300-30 mg 00:00: mouth [place] tablet 00 every 4 Medical (four) Branch hours as needed (pain). acetaminoph 2018-0 Yes 1{tbl} Take 1 [facility] [place] en-codeine 3-27 tablet by ity of 300-30 mg 00:00: mouth [place] tablet 00 every 4 Medical (four) Branch hours as needed (pain). acetaminoph 2018-0 Yes 1{tbl} Take 1 [facility] [place] en-codeine 3-27 tablet by ity of 300-30 mg 00:00: mouth [place] tablet 00 every 4 Medical (four) Branch hours as needed (pain). acetaminoph 2018-0 Yes 1{tbl} Take 1 [facility] [place] en-codeine 3-27 tablet by ity of 300-30 mg 00:00: mouth [place] tablet 00 every 4 Medical (four) Branch hours as needed (pain). acetaminoph 2018-0 Yes 1{tbl} Take 1 [facility] [place] en-codeine 3-27 tablet by ity of 300-30 mg 00:00: mouth [place] tablet 00 every 4 Medical (four) Branch hours as needed (pain). Immunizations Ordered Filled Immunization Date Status Comments [facility] e Immunization Name Name [place] COVID-19 [place] COVID-19 2020-10-10 Completed Vaccine Vaccine 00:00:00 Influenza Virus 2012-12-14 Completed Universit y of Vaccine (3+ yrs) 00:00:00 [facility] Influenza Virus 2012-12-14 Completed Universit y of Vaccine (3+ yrs) 00:00:00 [facility] Influenza Virus 2012-12-14 Completed Universit y of Vaccine (3+ yrs) 00:00:00 [facility] Branch Influenza Virus 2012-12-14 Completed Universit y of Vaccine (3+ yrs) 00:00:00 [facility] Influenza Virus 2012-12-14 Completed Universit y of Vaccine (3+ yrs) 00:00:00 [facility] Influenza Virus 2012-12-14 Completed Universit y of Vaccine (3+ yrs) 00:00:00 [facility] Branch Influenza Virus 2012-12-14 Completed Universit y of Vaccine (3+ yrs) 00:00:00 [facility] Branch Influenza Virus 2012-12-14 Completed Universit y of Vaccine (3+ yrs) 00:00:00 [facility] Influenza Virus 2012-12-14 Completed Universit y of Vaccine (3+ yrs) 00:00:00 [facility] Branch Influenza Virus 2012-12-14 Completed Universit y of Vaccine (3+ yrs) 00:00:00 [facility] Branch Influenza Virus 2012-12-14 Completed Universit y of Vaccine (3+ yrs) 00:00:00 [facility] Branch Influenza Virus 2012-12-14 Completed Universit y of Vaccine (3+ yrs) 00:00:00 [facility] Branch Influenza Virus 2012-12-14 Completed Universit y of Vaccine (3+ yrs) 00:00:00 [facility] Branch Influenza Virus 2012-12-14 Completed Universit y of Vaccine (3+ yrs) 00:00:00 [facility] Branch Influenza Virus 2012-12-14 Completed Universit y of Vaccine (3+ yrs) 00:00:00 [facility] Td 1994-10-16 Completed University of 00:00:00 [facility] Td 1994-10-16 Completed University of 00:00:00 [facility] Td 1994-10-16 Completed University of 00:00:00 [place] [facility] Td 1994-10-16 Completed University of 00:00:00 [place] [facility] Td 1994-10-16 Completed University of 00:00:00 [place] [facility] Td 1994-10-16 Completed University of 00:00:00 [facility] Td 1994-10-16 Completed University of 00:00:00 [facility] Td 1994-10-16 Completed University of 00:00:00 [place] [facility] Td 1994-10-16 Completed [facility] of 00:00:00 [place] [facility] Td 1994-10-16 Completed University of 00:00:00 [place] [facility] Td 1994-10-16 Completed University of 00:00:00 [facility] Td 1994-10-16 Completed University of 00:00:00 [facility] Td 1994-10-16 Completed University of 00:00:00 [facility] Td 1994-10-16 Completed University of 00:00:00 [facility] Td 1994-10-16 Completed University of 00:00:00 [facility] DTP 1992-10-15 Completed University of 00:00:00 [facility] HIB 4 Dose Schedule 1992-10-15 Completed Unive rsity of 00:00:00 [facility] MMR 1992-10-15 Completed University of 00:00:00 [facility] Polio (IPV/OPV) 1992-10-15 Completed Universit y of 00:00:00 [facility] DTP 1992-10-15 Completed University of 00:00:00 [facility] HIB 4 Dose Schedule 1992-10-15 Completed Unive rsity of 00:00:00 [facility] MMR 1992-10-15 Completed University of 00:00:00 [facility] Polio (IPV/OPV) 1992-10-15 Completed Universit y of 00:00:00 [facility] DTP 1992-10-15 Completed University of 00:00:00 [facility] HIB 4 Dose Schedule 1992-10-15 Completed Unive rsity of 00:00:00 [facility] MMR 1992-10-15 Completed University of 00:00:00 [facility] Polio (IPV/OPV) 1992-10-15 Completed Universit y of 00:00:00 [facility] DTP 1992-10-15 Completed University of 00:00:00 [facility] HIB 4 Dose Schedule 1992-10-15 Completed Unive rsity of 00:00:00 [place] [facility] MMR 1992-10-15 Completed University of 00:00:00 [place] [facility] Polio (IPV/OPV) 1992-10-15 Completed Universit [facility] of 00:00:00 [place] [facility] DTP 1992-10-15 Completed University of 00:00:00 [place] [facility] HIB 4 Dose Schedule 1992-10-15 Completed Unive rsity of 00:00:00 [place] [facility] MMR 1992-10-15 Completed University of 00:00:00 [place] [facility] Polio (IPV/OPV) 1992-10-15 Completed Universit [facility] of 00:00:00 [place] [facility] DTP 1992-10-15 Completed University of 00:00:00 [place] [facility] HIB 4 Dose Schedule 1992-10-15 Completed Unive rsity of 00:00:00 [facility] MMR 1992-10-15 Completed University of 00:00:00 [facility] Polio (IPV/OPV) 1992-10-15 Completed Universit y of 00:00:00 [place] [facility] DTP 1992-10-15 Completed University of 00:00:00 [place] [facility] HIB 4 Dose Schedule 1992-10-15 Completed Unive rsity of 00:00:00 [place] [facility] MMR 1992-10-15 Completed University of 00:00:00 [place] [facility] Polio (IPV/OPV) 1992-10-15 Completed Universit y of 00:00:00 [facility] DTP 1992-10-15 Completed University of 00:00:00 [place] [facility] HIB 4 Dose Schedule 1992-10-15 Completed Unive rsity of 00:00:00 [facility] MMR 1992-10-15 Completed University of 00:00:00 [facility] Polio (IPV/OPV) 1992-10-15 Completed Univers[facility] of 00:00:00 [place] [facility] DTP 1992-10-15 Completed University of 00:00:00 [place] [facility] HIB 4 Dose Schedule 1992-10-15 Completed Unive rsity of 00:00:00 [facility] MMR 1992-10-15 Completed University of 00:00:00 [place] [facility] Polio (IPV/OPV) 1992-10-15 Completed Universit [facility] of 00:00:00 [facility] DTP 1992-10-15 Completed University of 00:00:00 [place] [facility] HIB 4 Dose Schedule 1992-10-15 Completed Unive rsity of 00:00:00 [facility] MMR 1992-10-15 Completed University of 00:00:00 [facility] Polio (IPV/OPV) 1992-10-15 Completed Universit y of 00:00:00 [facility] DTP 1992-10-15 Completed University of 00:00:00 [place] [facility] HIB 4 Dose Schedule 1992-10-15 Completed Unive rsity of 00:00:00 [facility] MMR 1992-10-15 Completed University of 00:00:00 [facility] Polio (IPV/OPV) 1992-10-15 Completed Universit y of 00:00:00 [facility] DTP 1992-10-15 Completed University of 00:00:00 [facility] HIB 4 Dose Schedule 1992-10-15 Completed Unive rsity of 00:00:00 [facility] MMR 1992-10-15 Completed University of 00:00:00 [facility] Polio (IPV/OPV) 1992-10-15 Completed Universit y of 00:00:00 [facility] DTP 1992-10-15 Completed University of 00:00:00 [place] [facility] HIB 4 Dose Schedule 1992-10-15 Completed Unive rsity of 00:00:00 [facility] MMR 1992-10-15 Completed University of 00:00:00 [place] [facility] Polio (IPV/OPV) 1992-10-15 Completed Universit y of 00:00:00 [facility] DTP 1992-10-15 Completed University of 00:00:00 [place] [facility] HIB 4 Dose Schedule 1992-10-15 Completed Unive rsity of 00:00:00 [facility] MMR 1992-10-15 Completed University of 00:00:00 [place] [facility] Polio (IPV/OPV) 1992-10-15 Completed Universit [facility] of 00:00:00 [place] [facility] DTP 1992-10-15 Completed University of 00:00:00 [place] [facility] HIB 4 Dose Schedule 1992-10-15 Completed Unive rsity of 00:00:00 [place] [facility] MMR 1992-10-15 Completed University of 00:00:00 [place] [facility] Polio (IPV/OPV) 1992-10-15 Completed Universit [facility] of 00:00:00 [place] [facility] Polio (IPV/OPV) 1991-10-08 Completed Universit y of 00:00:00 [facility] DTP 1991-10-08 Completed University of 00:00:00 [facility] HIB 4 Dose Schedule 1991-10-08 Completed Unive rsity of 00:00:00 [place] [facility] Polio (IPV/OPV) 1991-10-08 Completed Universit y of 00:00:00 [facility] DTP 1991-10-08 Completed University of 00:00:00 [place] [facility] HIB 4 Dose Schedule 1991-10-08 Completed Unive rsity of 00:00:00 [place] [facility] Polio (IPV/OPV) 1991-10-08 Completed Universit y of 00:00:00 [facility] DTP 1991-10-08 Completed University of 00:00:00 [facility] HIB 4 Dose Schedule 1991-10-08 Completed Unive rsity of 00:00:00 [facility] Polio (IPV/OPV) 1991-10-08 Completed Universit y of 00:00:00 [facility] DTP 1991-10-08 Completed University of 00:00:00 [facility] HIB 4 Dose Schedule 1991-10-08 Completed Unive rsity of 00:00:00 [facility] Polio (IPV/OPV) 1991-10-08 Completed Universit y of 00:00:00 [facility] DTP 1991-10-08 Completed University of 00:00:00 [facility] HIB 4 Dose Schedule 1991-10-08 Completed Unive rsity of 00:00:00 [facility] Polio (IPV/OPV) 1991-10-08 Completed Universit y of 00:00:00 [facility] DTP 1991-10-08 Completed University of 00:00:00 [facility] HIB 4 Dose Schedule 1991-10-08 Completed Unive rsity of 00:00:00 [facility] Polio (IPV/OPV) 1991-10-08 Completed Universit y of 00:00:00 [facility] DTP 1991-10-08 Completed University of 00:00:00 [facility] HIB 4 Dose Schedule 1991-10-08 Completed Unive rsity of 00:00:00 [facility] Polio (IPV/OPV) 1991-10-08 Completed Universit y of 00:00:00 [place] [facility] DTP 1991-10-08 Completed University of 00:00:00 [place] [facility] HIB 4 Dose Schedule 1991-10-08 Completed Unive rsity of 00:00:00 [facility] Polio (IPV/OPV) 1991-10-08 Completed Universit y of 00:00:00 [facility] DTP 1991-10-08 Completed University of 00:00:00 [place] [facility] HIB 4 Dose Schedule 1991-10-08 Completed Unive rsity of 00:00:00 [facility] Polio (IPV/OPV) 1991-10-08 Completed Universit [facility] of 00:00:00 [facility] DTP 1991-10-08 Completed University of 00:00:00 [place] [facility] HIB 4 Dose Schedule 1991-10-08 Completed Unive rsity of 00:00:00 [facility] Polio (IPV/OPV) 1991-10-08 Completed Universit y of 00:00:00 [facility] DTP 1991-10-08 Completed University of 00:00:00 [facility] HIB 4 Dose Schedule 1991-10-08 Completed Unive rsity of 00:00:00 [facility] Polio (IPV/OPV) 1991-10-08 Completed Universit y of 00:00:00 [facility] DTP 1991-10-08 Completed University of 00:00:00 [place] [facility] HIB 4 Dose Schedule 1991-10-08 Completed Unive rsity of 00:00:00 [facility] Polio (IPV/OPV) 1991-10-08 Completed Universit y of 00:00:00 [facility] DTP 1991-10-08 Completed University of 00:00:00 [place] [facility] HIB 4 Dose Schedule 1991-10-08 Completed Unive rsity of 00:00:00 [facility] Polio (IPV/OPV) 1991-10-08 Completed Universit y of 00:00:00 [place] [facility] DTP 1991-10-08 Completed University of 00:00:00 [place] [facility] HIB 4 Dose Schedule 1991-10-08 Completed Unive rsity of 00:00:00 [facility] Polio (IPV/OPV) 1991-10-08 Completed Universit y of 00:00:00 [place] [facility] DTP 1991-10-08 Completed University of 00:00:00 [place] [facility] HIB 4 Dose Schedule 1991-10-08 Completed Unive rsity of 00:00:00 [facility] Polio (IPV/OPV) 1991-07-10 Completed Universit y of 00:00:00 [facility] DTP 1991-07-10 Completed University of 00:00:00 [facility] HIB 4 Dose Schedule 1991-07-10 Completed Unive rsity of 00:00:00 [facility] Polio (IPV/OPV) 1991-07-10 Completed Universit y of 00:00:00 [facility] DTP 1991-07-10 Completed University of 00:00:00 [facility] HIB 4 Dose Schedule 1991-07-10 Completed Unive rsity of 00:00:00 [facility] Polio (IPV/OPV) 1991-07-10 Completed Universit y of 00:00:00 [facility] DTP 1991-07-10 Completed University of 00:00:00 [facility] HIB 4 Dose Schedule 1991-07-10 Completed Unive rsity of 00:00:00 [facility] Polio (IPV/OPV) 1991-07-10 Completed Universit y of 00:00:00 [facility] DTP 1991-07-10 Completed University of 00:00:00 [facility] HIB 4 Dose Schedule 1991-07-10 Completed Unive rsity of 00:00:00 [facility] Polio (IPV/OPV) 1991-07-10 Completed Universit y of 00:00:00 [facility] DTP 1991-07-10 Completed University of 00:00:00 [facility] HIB 4 Dose Schedule 1991-07-10 Completed Unive rsity of 00:00:00 [facility] Polio (IPV/OPV) 1991-07-10 Completed Universit y of 00:00:00 [facility] DTP 1991-07-10 Completed University of 00:00:00 [facility] HIB 4 Dose Schedule 1991-07-10 Completed Unive rsity of 00:00:00 [facility] Polio (IPV/OPV) 1991-07-10 Completed Universit y of 00:00:00 [facility] DTP 1991-07-10 Completed University of 00:00:00 [facility] HIB 4 Dose Schedule 1991-07-10 Completed Unive rsity of 00:00:00 [facility] Polio (IPV/OPV) 1991-07-10 Completed Universit y of 00:00:00 [facility] DTP 1991-07-10 Completed University of 00:00:00 [facility] HIB 4 Dose Schedule 1991-07-10 Completed Unive rsity of 00:00:00 [place] [facility] Polio (IPV/OPV) 1991-07-10 Completed Universit y of 00:00:00 [facility] DTP 1991-07-10 Completed University of 00:00:00 [place] [facility] HIB 4 Dose Schedule 1991-07-10 Completed Unive rsity of 00:00:00 [place] [facility] Polio (IPV/OPV) 1991-07-10 Completed [facility] of 00:00:00 [facility] DTP 1991-07-10 Completed University of 00:00:00 [place] [facility] HIB 4 Dose Schedule 1991-07-10 Completed Unive rsity of 00:00:00 [facility] Polio (IPV/OPV) 1991-07-10 Completed [facility] of 00:00:00 [facility] DTP 1991-07-10 Completed University of 00:00:00 [facility] HIB 4 Dose Schedule 1991-07-10 Completed Unive rsity of 00:00:00 [facility] Polio (IPV/OPV) 1991-07-10 Completed Univers[facility] of 00:00:00 [facility] DTP 1991-07-10 Completed University of 00:00:00 [facility] HIB 4 Dose Schedule 1991-07-10 Completed Unive rsity of 00:00:00 [facility] Polio (IPV/OPV) 1991-07-10 Completed [facility] of 00:00:00 [facility] DTP 1991-07-10 Completed University of 00:00:00 [facility] HIB 4 Dose Schedule 1991-07-10 Completed Unive rsity of 00:00:00 [facility] Polio (IPV/OPV) 1991-07-10 Completed Univers[facility] of 00:00:00 [place] [facility] DTP 1991-07-10 Completed University of 00:00:00 [place] [facility] HIB 4 Dose Schedule 1991-07-10 Completed Unive rsity of 00:00:00 [facility] Polio (IPV/OPV) 1991-07-10 Completed [facility] of 00:00:00 [place] [facility] DTP 1991-07-10 Completed University of 00:00:00 [facility] HIB 4 Dose Schedule 1991-07-10 Completed Unive rsity of 00:00:00 [facility] Polio (IPV/OPV) 1991-01-30 Completed [facility] of 00:00:00 [facility] DTP 1991-01-30 Completed University of 00:00:00 [facility] HIB 4 Dose Schedule 1991-01-30 Completed Unive rsity of 00:00:00 [facility] Polio (IPV/OPV) 1991-01-30 Completed [facility] of 00:00:00 [facility] DTP 1991-01-30 Completed [facility] of 00:00:00 [facility] HIB 4 Dose Schedule 1991-01-30 Completed Unive rsity of 00:00:00 [facility] Polio (IPV/OPV) 1991-01-30 Completed Univers[facility] of 00:00:00 [facility] DTP 1991-01-30 Completed University of 00:00:00 [facility] HIB 4 Dose Schedule 1991-01-30 Completed Unive rsity of 00:00:00 [facility] Polio (IPV/OPV) 1991-01-30 Completed Univers[facility] of 00:00:00 [facility] DTP 1991-01-30 Completed [facility] of 00:00:00 [facility] HIB 4 Dose Schedule 1991-01-30 Completed Unive rsity of 00:00:00 [facility] Polio (IPV/OPV) 1991-01-30 Completed [facility] of 00:00:00 [facility] DTP 1991-01-30 Completed University of 00:00:00 [facility] HIB 4 Dose Schedule 1991-01-30 Completed [facility]ive rsity of 00:00:00 [facility] Polio (IPV/OPV) 1991-01-30 Completed [facility] of 00:00:00 [facility] DTP 1991-01-30 Completed [facility] of 00:00:00 [facility] HIB 4 Dose Schedule 1991-01-30 Completed [facility]ive rsity of 00:00:00 [facility] Polio (IPV/OPV) 1991-01-30 Completed [facility] of 00:00:00 [facility] DTP 1991-01-30 Completed [facility] of 00:00:00 [facility] HIB 4 Dose Schedule 1991-01-30 Completed [facility]ive [facility]ity of 00:00:00 [facility] Polio (IPV/OPV) 1991-01-30 Completed [facility] of 00:00:00 [facility] DTP 1991-01-30 Completed [facility] 00:00:00 [facility] HIB 4 Dose Schedule 1991-01-30 Completed Unive rsity of 00:00:00 [facility] Polio (IPV/OPV) 1991-01-30 Completed [facility] of 00:00:00 [facility] DTP 1991-01-30 Completed [facility] of 00:00:00 [facility] HIB 4 Dose Schedule 1991-01-30 Completed Unive rsity of 00:00:00 [facility] Polio (IPV/OPV) 1991-01-30 Completed [facility] of 00:00:00 [facility] DTP 1991-01-30 Completed [facility] of 00:00:00 [facility] HIB 4 Dose Schedule 1991-01-30 Completed [facility]ive rsity of 00:00:00 [facility] Polio (IPV/OPV) 1991-01-30 Completed [facility] of 00:00:00 [facility] DTP 1991-01-30 Completed [facility] of 00:00:00 [facility] HIB 4 Dose Schedule 1991-01-30 Completed [facility]ive rsity of 00:00:00 [facility] Polio (IPV/OPV) 1991-01-30 Completed [facility] of 00:00:00 [facility] DTP 1991-01-30 Completed [facility] of 00:00:00 [facility] HIB 4 Dose Schedule 1991-01-30 Completed [facility]ive rsity of 00:00:00 [facility] Polio (IPV/OPV) 1991-01-30 Completed [facility] of 00:00:00 [facility] DTP 1991-01-30 Completed [facility] of 00:00:00 [facility] HIB 4 Dose Schedule 1991-01-30 Completed [facility]ive rsity of 00:00:00 [facility] Polio (IPV/OPV) 1991-01-30 Completed [facility] of 00:00:00 [facility] DTP 1991-01-30 Completed [facility] 00:00:00 [facility] HIB 4 Dose Schedule 1991-01-30 Completed [facility]ive [facility]ity of 00:00:00 [facility] Polio (IPV/OPV) 1991-01-30 Completed [facility] of 00:00:00 [facility] DTP 1991-01-30 Completed [facility] of 00:00:00 [facility] HIB 4 Dose Schedule 1991-01-[birth year] Completed Unive rsity of 00:00:00 [facility] Vital Signs Vital Name Observation Time Observation Value Comments Source Systolic blood 2020-07-18 03:17:00 132 mm[Hg] Univer sity of pressure [facility] Diastolic blood 2020-07-18 03:17:00 71 mm[Hg] Unive rsity of pressure [facility] Heart rate 2020-07-18 03:17:00 100 /min [facility] Respiratory rate 2020-07-18 03:17:00 16 /min [facility] Oxygen saturation in 2020-07-18 03:17:00 100 /min University of Arterial blood by [place] [employer] [employer] Pulse oximetry Branch Body temperature 2020-07-17 22:06:00 37.06 Amarilis [facility] Body height 2020-07-16 20:04:00 172.7 cm [facility] Body weight 2020-07-16 20:04:00 129.275 kg [facility] BMI 2020-07-16 20:04:00 43.33 kg/m2 [facility] Systolic blood 2020-07-18 03:17:00 132 mm[Hg] Univer sity of pressure [facility] Diastolic blood 2020-07-18 03:17:00 71 mm[Hg] Unive rsity of pressure [facility] Heart rate 2020-07-18 03:17:00 100 /min [facility] Respiratory rate 2020-07-18 03:17:00 16 /min [facility] Oxygen saturation in 2020-07-18 03:17:00 100 /min University of Arterial blood by [place] [employer] Pulse oximetry Branch Body temperature 2020-07-17 22:06:00 37.06 Amarilis [facility] Body height 2020-07-16 20:04:00 172.7 cm [facility] Body weight 2020-07-16 20:04:00 129.275 kg [facility] BMI 2020-07-16 20:04:00 43.33 kg/m2 [facility] Systolic blood 2020-05-10 01:11:00 137 mm[Hg] Univer sity of pressure [facility] Diastolic blood 2020-05-10 01:11:00 82 mm[Hg] Unive rsity of pressure [facility] Heart rate 2020-05-10 01:11:00 72 /min Universi ty of [facility] Respiratory rate 2020-05-10 01:11:00 16 /min Univ ersity of [facility] Oxygen saturation in 2020-05-10 01:11:00 99 /min University of Arterial blood by [facility] Pulse oximetry Branch Body temperature 2020-05-09 22:25:00 36.89 Amarilis Univ ersity of [facility] Body weight 2020-05-09 22:25:00 126.999 kg Universi ty of [facility] BMI 2020-05-09 22:25:00 43.85 kg/m2 Universi ty [facility] Systolic blood 2020-04-18 16:57:00 150 mm[Hg] Univer sity of pressure [facility] Diastolic blood 2020-04-18 16:57:00 85 mm[Hg] Unive rsity of pressure [facility] Heart rate 2020-04-18 16:57:00 76 /min Universi ty of [facility] Body temperature 2020-04-18 16:57:00 36.78 Amarilis Univ ersity of [facility] Respiratory rate 2020-04-18 16:57:00 16 /min Univ ersity of [facility] Oxygen saturation in 2020-04-18 16:57:00 100 /min University of Arterial blood by [facility] Pulse oximetry Branch Body weight 2020-04-18 15:05:00 117.935 kg Universi ty [facility] BMI 2020-04-18 15:05:00 40.72 kg/m2 Universi ty [facility] Procedures Procedure Date / Time Performing Clinician Source Performed EXTERNAL PROVIDER 2020-07-29 05:01:00 Doctor Unassigned, No [facility] Name Medical Branch POCT TEST 2020-07-16 21:53:00 Scott Valladares [facility] URINE DRUG (IMMUNOASSAY) 2020-07-16 21:50:00 Scott Valladares [facility] SCREEN URINALYSIS 2020-07-16 21:50:00 Scott Valladares [facility] CREATINE KINASE 2020-07-16 20:53:00 Scott Valladares [facility] THYROID STIMULATING 2020-07-16 20:53:00 Scott Valladares [facility] HORMONE [facility] COMP. METABOLIC PANEL 2020-07-16 20:53:00 Scott Valladares [facility] ([id number]) [facility] SALICYLATE 2020-07-16 20:53:00 Scott Valladares [facility] ETHANOL 2020-07-16 20:53:00 Scott Valladares [facility] CBC WITH DIFF 2020-07-16 20:53:00 Scott Valladares [facility] COVID-19 (ID NOW RAPID 2020-07-16 20:53:00 Scott Valladares [facility] TESTING) [facility] ASSIGNMENT OF BENEFITS 2020-07-16 19:42:11 Doctor Unassigned, No [facility] Name [facility] CONSENT/REFUSAL FOR 2020-07-16 19:37:50 Doctor Unassigned, No [facility] DIAGNOSIS AND TREATMENT [facility] POCT TEST 2020-05-09 23:22:00 Brian Tamez [facility] POCT TEST 2020-04-18 15:55:00 Salome Richter [facility] XR CHEST 1 VW 2020-04-18 15:54:08 Salome Richter [facility] URINALYSIS 2020-04-18 15:51:00 Salome Richter [facility] Encounters Start End Encounter Admission Attending Care Care Encounter Source Date/Time Date/Time Type Type Clinicians Facility Department ID 2020-12-28 Emergency [facility] [id number] [facility] Emergency [facility] [id number] Univers 05:42:50 [facility] 2020-12-28 Emergency [facility] [id number] Univers 00:03:44 [facility] 2020-07-15 Inpatient HCAMN TWILA [id number] [facility] 20:03:00 [id number] [facility] 2020-12-02 2020-12-02 Laboratory Only, Blane Test [facility] 1.2.840. 114 [id number] Univers 11:42:19 11:57:19 Only Oren Irby [facility] 350.1.13.10 [facility] 4.2.7.2.686 [facility] [phone] [facility] Primary & 357 Branch Specialty Care 2020-12-02 2020-12-02 Outpatient R [facility] [id number] Univers 08:45:00 08:45:00 [id number] ity [facility] 2020-12-02 2020-12-02 Outpatient R SUREKHA [facility] [id number] Univers 08:45:00 08:45:00 OREN [facility] 2020-10-24 2020-10-24 Emergency EM Jacob, HCACL TERS E1036 60-20 [facility] 17:20:00 21:08:00 Tarek [id number] [facility] 2020-10-10 2020-10-10 Outpatient GCCOVIDV GCCOVIDV [id number] GCCOVID 00:00:00 00:00:00 V 2020-08-25 2020-08-25 Emergency EM Shahbazteddy, HCACL TERS E1036 60-20 [facility] 20:45:00 22:00:00 Tarek [id number] [facility] 2020-07-29 2020-07-29 Orders Doctor OSORIO 1.2.840.114 [id number] Univers 00:00:00 00:00:00 Only Unassigned, LYNSEY 350.1.13.10 ity of [place] [facility] 4.2.7.2.686 [place] [phone] [facility] 009 Branch 2020-07-29 2020-07-29 Orders Doctor OSORIO 1.2.840.114 [id number] 00:00:00 00:00:00 Only Unassigned, [place] 350.1.13.[address] [place] [facility] 4.2.7.2.686 [id number] 009 2020-07-16 2020-07-17 Emergency Scott Valladares [facility] 1.2.840 .114 [id number] Univers 15:05:00 22:31:00 Trevon Davison [facility] 350.1.13. 10 ity of [place] 4.2.7.2. 686 [place] [phone] [address] ([facility]) 2020-07-16 2020-07-17 Emergency Scott Valladares [facility] 1.2.840 .114 [id number] 15:05:00 22:31:00 Trevon Davison [facility] 350.1.13. 10 [place] 4.2.7.2. 686 [facility] [id number] [address] ([facility]) 2020-07-09 2020-07-09 Laboratory Only, Blane Test [facility] 1.2.840. 114 [id number] [facility] 16:06:48 16:21:48 Only Oren Irby [facility] 350.1.13.10 ity of [place] 4.2.7.2.686 [facility] [id number] [facility] Primary & 357 Branch Specialty Care 2020-07-09 2020-07-09 Laboratory Only, Blane [facility] 1.2.840.114 [id number] 16:06:48 16:21:48 Only Test HEALTH 350.1.13.10 [place] 4.2.7.2.686 [facility] [id number] Primary & 357 Specialty Care 2020-07-09 2020-07-09 Outpatient R [facility] [id number] Univers 16:15:00 16:15:00 [id number] ity of [facility] 2020-07-09 2020-07-09 Outpatient R SUREKHA [facility] [id number] Univers 16:15:00 16:15:00 OREN ity [facility] 2020-07-02 2020-07-02 Laboratory Only, Blane Test [facility] 1.2.840. 114 [id number] Univers 15:04:30 15:19:30 Only Oren Irby [place] [facility] 350.1.13.10 [place]y of [place] 4.2.7.2.686 [facility] [id number] [facility] Primary & 357 Branch Specialty Care 2020-07-02 2020-07-02 Laboratory Only, Blane [facility] 1.2.840.114 [id number] 15:04:30 15:19:30 Only Test HEALTH 350.1.13.10 [place] [address].2.68[facility] [id number] Primary & 357 Specialty Care 2020-07-02 2020-07-02 Outpatient R [facility] [id number] Univers 15:00:00 15:00:00 [id number] y [facility] 2020-07-02 2020-07-02 Outpatient R SUREKHA, [facility] [id number] Univers 15:00:00 15:00:00 OREN [facility] 2020-07-02 2020-07-02 Letter JO Fontenot 1.2.840.114 [id number] Univers 00:00:00 00:00:00 (Out) Lanette Aníbal LYNSEY 350.1.13.10 i ty of [place] [address].2.[facility] [place] as [phone] [facility] [address] [place] 2020-07-02 2020-07-02 JO Zepeda 1.2.840.114 [id number] 00:00:00 00:00:00 (Out) Lanette Aníbal [place] 350.1.13.10 [place] [address].2.[facility] [id number] 2020-05-09 2020-05-09 Emergency Joi, TRAUMA 1.2.737.890 [id number] Univers 16:27:00 19:18:00 [facility] 350.1.13.10 i ty [place] [address].[place] [id number] [facility] 014 Branch 2020-05-01 2020-05-01 Letter JO Gonzalez 1.2.840.114 [id number] Univers 00:00:00 00:00:00 (Out) Valarie MENON 350.1.13.[address] [facility] 42.7.2.686 [place] [phone] [facility] [address] [place] 2020-04-30 2020-04-30 Laboratory Nurse, [place] Urgent [facility] 1.2.8 40.114 [id number] Univers 08:29:03 08:44:03 Only Unknown, Attending HEALTH 350.1.13.10 ity of [place] Ir[place] 42.7.2.686 [place] [phone] [facility] Primary & 370 Branch Specialty Care 2020-04-30 2020-04-30 Outpatient R [facility] [id number] Univers 08:30:00 08:30:00 [id number] ity of [facility] 2020-04-30 2020-04-30 Outpatient R UNKNOWN, [facility] [id number] Univers 08:30:00 08:30:00 ATTENDING ity of [facility] 2020-04-18 2020-04-18 Emergency Chaoman, TRAUMA 1.2.840.114 [id number] Univers 09:06:00 11:14:00 [facility] 350.1.13.10 [place] [id number] [facility] 014 Branch 2020-04-18 2020-04-18 Letter JO Gonzalez 1.2.840.114 [id number] Univers 00:00:00 00:00:00 (Out) Valarie Buchanan L[place]SE[place] 350.1.13.10 it y of HOSPITAL 4.2.7.2.686 [place] [phone] [facility] [address] [place] 2020-04-18 2020-04-18 Telephone PcpJO 1.2.175.490 [id number] Univers 00:00:00 00:00:00 Patient LYNSEY 350.1.13.10 it y of Does Not HOSPITAL 4[place].2.[place] [phone] [address] 2019-09-25 2019-09-25 Laboratory Nurse, Gal Pcp Assessment C [facility] 1.2.840.114 [id number] Univers 16:49:49 17:04:49 Only Chong Zuniga PRIMARY 350.1.13. 10 it[place] of [place] [id number] Vt dical [address] [place] [address] 2019-09-25 2019-09-25 Outpatient R [facility] [id number] Univers 16:45:00 16:45:00 [id number] [facility] 2019-09-25 2019-09-25 Outpatient R EFRAIN, [facility] [id number] Univers 16:45:00 16:45:00 CHONG [facility] 2019-09-24 2019-09-24 Outpatient R [facility] [id number] Univers 16:45:00 16:45:00 [id number] [facility] 2019-09-24 2019-09-24 Outpatient R DELFINPAMELAGENA, [facility] [id number] Univers 16:45:00 16:45:00 JOANNA [facility] 2019-09-23 2019-09-23 Outpatient R [facility] [id number] Univers 14:15:00 14:15:00 [id number] [facility] 2019-09-23 2019-09-23 Outpatient R [facility] [id number] Univers 14:15:00 14:15:00 [facility] 2019-09-22 2019-09-22 Outpatient R [facility] [id number] Univers 13:15:00 13:15:00 [id number] [facility] 2019-01-18 2019-01-18 Emergency X UNKNOWN, [facility] ERT [id number] Univers 19:18:10 21:55:00 ATTENDING [facility] 2019-01-06 2019-01-06 Emergency X WEBER, [facility] ERT [id number] Univers 17:46:00 18:09:00 HALLE [facility] Results Test Description Test Time Test Comments Results Result Comments Source AG STREP GROUP A (THROAT) 2020-10-24 18:31:00 Test Item Value Reference Range Interpretation Comme nts AG STREP GROUP A (THROAT) POSITIVE Negative Pe rformed by certified veterinary x ray operator at (test code = STREPA) Clear L [facility] Strep-A is a rapid, instru ment-based, molecular invitro diagnos tic test utilizing isothermal nucl eic acidamplification technology for the qualitative detection ofStr eptococcus pyogenes - XR CHEST 1 [id number] 21:20:00 [facility] : 1990 Sex: F FAX: Emmanuel Buchanan MD [phone] [place]: St: REG-------- Name: GARY BROWN [place] FSED : 1990 Age/S: 29/F Unit #: [id number] Loc: [place] Phys: Emmanuel James MD Acct: [id number] Dis Date: Status: REG ER PHONE #: Exam Date: 07/30 FAX #: Reason: CP EXAMS: CPT CODE: [id number] XR CHEST 1 V 56029 SINGLE VIEW RADIOGRAPH CHEST INDICATION: Chest pain and dyspnea. TECHNIQUE: A single view frontal radiograph ofthe chest was obtained. COMPARISONS: Chest x-ray 07/15/2020 FINDINGS: There is a mild complex thoracic spine scoliotic curvature similar to prior. There is no acute osseous fracture or dislocation. There is no subdiaphragmatic free gas. The cardiomediastinal size and contour are normal. There is no pneumothorax,pleural effusion or organized pneumonia. IMPRESSION: 1. No acute cardiopulmonary process. at 2120 Reported and signed by: Dago Flores D.O. CC: Emmanuel James MD Technologist: Nunu Fregoso, RT(R)(CT) Trnjane [facility] Date/Time/By: 08/25/2020 (2119) : By: [email or web address] Orig Print D/T: S: 08/25/2020 (2122) PAGE 1 Sig chica [id number] 22:57:01 Test Item Value Reference Range Interpretation Comments APPEARANCE (test code = Clear Clear 5242267282) COLOR (test code = Yellow Yellow 7150648638) PH (test code = 4.8-8.0 7330098681) SP GRAVITY (test code = 1.003-1.030 7209715693) GLU U QUAL (test code = Negative Negative 9077083335) BLOOD (test code = Negative Negative 7140173885) KETONES (test code = Negative Negative 5465559555) PROTEIN (test code = Negative Negative 2887-8) UROBILIN (test code = 0.2 mg/dL See_Comment [Auto mated message] 1238162941) The system [employer] generated this result transmit licha reference range : 0-1.0 mg/dL. Th e reference range was not used to interpret this result as normal/abnormal . BILIRUBIN (test code = Negative Negative 2713427197) NITRITE (test code = Negative Negative 5985679215) LEUK MARK (test code = Large Negative A 4223015286) RBC/HPF (test code = See_Comment H [Autom ated message] 0888351042) The system [employer] generated this result transmit licha reference range : 0 - 3 HPF. The refe rence range was not u sed to interpret th is result as normal/abnormal . WBC/HPF (test code = See_Comment H [Autom ated message] 4806339216) The system [employer] generated this result transmit licha reference range : 0 - 5 HPF. The refe rence range was not u sed to interpret th is result as normal/abnormal . BACTERIA (test code = Few Negative A 2734176100) MUCOUS (test code = Slight Negative LPF A 8698171716) SQ EPITH (test code = See_Comment H [Auto mated message] 7711197078) The system [employer] generated this result transmit licha reference range : <=2 HPF. The refere nce range was not u sed to interpret th is result as normal/abnormal . Lab Interpretation (test Abnormal code = 17134-7) [facility] [id number] 22:42:33 Test Item Value Reference Range Interpretation Comments AMPHET (test code = Negative Negative 8624549726) NAYLA U (test code = Negative Negative 5922493283) BENZO U (test code = Negative Negative 6783010979) Cocaine Metabolite (test Negative Negative code = 3605561866) METHADONE (test code = Negative Negative 2388460830) OPIATES (test code = Negative Negative 5461366248) PCP (test code = Negative Negative 7347449109) THC (test code = Negative Negative 5638677720) BRINDA (test code = BRINDA) Urine Drug Cutoff Ranges Cocaine: ? 150 ng/mLBenzodiazepines: ? ? 200 ng/mLMethadone: ? 300 ng/mLAmphetamine: ? 1,000 ng/mLOpiates: ? 300 ng/mLCannabinoids: ?50 ng/mLPhencyclidine: ? ? ? 25 ng/mLBarbiturates: ?200 ng/mL The results are to be used only for medical (i.e., treatment) purposes. Unconfirmed screening results must not be used for non-medical purposes (e.g., employment testing, legal testing). Lab Interpretation (test Normal code = 06331-2) [facility] [id number] 21:53:00 Test Item Value Reference Range Interpretation Comments POCT PREG (test code = 1605) negative On board controls acceptable with present C Line (test code = 3574) POCT PREG LOT # (test code = 3575) POCT PREG TEST DATE (test 01/27/2022 code = 3576) Lab Interpretation (test code = Normal 23763-5) [facility] STIMULATING [id number] 21:40:46 Test Item Value Reference Range Interpretation Comments TSH (test code = See_Comment [Automated message] 2159787310) The system [employer] generated this result transmitted ref erence range: 0.45 - 4 .70 mIU/L. The refe rence range was not u sed to interpret this result as normal/abnor mal. Lab Interpretation (test Normal code = 64886-6) [facility] (ID NOW RAPID TESTING)2020-07-16 21:18:23 Test Item Value Reference Range Interpretation Comments SARS-CoV-2 Rapid ID NOW Not Detected Not Detected (test code = 43148-8) BRINDA (test code = BRINDA) ID NOW COVID-19 Assay is an isothermal nucleic acid amplification test intended for the qualitative detection of nucleic acid from SARS-CoV-2 viral RNA in nasopharyngeal (NETBACKUP ENGINEER) specimens. It is used under Emergency Use Authorization (EUA) by FDA. The limit of detection (LOD) of the assay is 125 Genome Equivalents/mL. A positive result is indicative of the presence of SARS-CoV-2 RNA. ?Clinical correlation with patient history and other diagnostic information is necessary to determine patient infection status. A negative (Not Detected) result does not preclude SARS-CoV-2 infection. In patients with clinical symptoms and other tests that are consistent with SARS-CoV-2 infection, negative results should be treated as presumptive negative and a new specimen should be tested with alternative PCR molecular test. Invalid: Please collect a new specimen for repeat patient testing if clinically indicated. Lab Interpretation Normal (test code = 90488-8) [facility]2021-[facility]-19 21:15:05 Test Item Value Reference Range Interpretation Comments SALICYLATE (test code <10 mg/L = 5261880435) BRINDA (test code = BRNIDA) Therapeutic Range: ? Analgesic and Antipyretic Use ? 20-100 mg/L ? ? Anti-Inflammatory Use ? 100-250 mg/L Toxic Range: ? Greater than 300 mg/L [facility]21[facility] 21:15:00 Test Item Value Reference Range Interpretation Comments ALCOHOL (test code = <10 mg/dL 0551186445) BRINDA (test code = Toxic Greater than or BRINDA) equal to 80 mg/dL. NOTE: Whole blood values are approximately 10% to 15% lower than serum and plasma. [facility] WITH [id number] 21:13:23 Test Item Value Reference Range Interpretation Comments WBC (test code = See_Comment [Automated 2090-2) message] The sy stem which generated this result transmitted reference range : 4.30 - 11.10 10*3/?L. The reference range was not used to interpret this result as normal/abnormal . RBC (test code = See_Comment [Automated 789-8) message] The sy stem which generated this result transmitted reference range : 3.93 - 5.25 10*6/?L. The reference range was not used to interpret this result as normal/abnormal . HGB (test code = 11.5 g/dL 11.6-15.0 L 718-7) HCT (test code = 36.7 % 35.7-45.2 4544-3) MCV (test code = 76.1 fL 80.6-95.5 L 787-2) MCH (test code = 23.9 pg 25.9-32.8 L 785-6) MCHC (test code = 31.3 g/dL 31.6-35.1 L 786-4) RDW-SD (test code = 45.5 fL 39.0-49.9 84064-9) RDW-CV (test code = 16.6 % 12.0-15.5 H 788-0) PLT (test code = See_Comment H [Automated 777-3) message] The sy stem which generated this result transmitted reference range : 166 - 358 10*3/ ?L. The reference r re was not used to interpret this result as normal/abnormal . MPV (test code = 11.3 fL 9.5-12.9 72348-1) NRBC/100 WBC (test See_Comment [Automat ed code = 8682826721) message] The system which generated this result transmitted reference range : 0.0 - 10.0 /100 WBCs. The refer ence range was not u sed to interpret th is result as normal/abnormal . NRBC x10^3 (test code <0.01 See_Comment [Auto mated = 6790224937) message] The s ystem which generated this result transmitted reference range : 10*3/?L. The reference range was not used to interpret this result as normal/abnormal . GRAN MAT (NEUT) % 62.1 % (test code = 770-8) IMM GRAN % (test code 0.30 % = 7248530838) LYMPH % (test code = 29.6 % 736-9) MONO % (test code = 5.7 % 5905-5) EOS % (test code = 1.7 % 713-8) BASO % (test code = 0.6 % 706-2) GRAN MAT x10^3(ANC) 4.49 10*3/uL 1.88-7.09 (test code = 4351580415) IMM GRAN x10^3 (test <0.03 0.00-0.06 code = 7699849141) LYMPH x10^3 (test code 2.14 10*3/uL 1.32-3.29 = 731-0) MONO x10^3 (test code 0.41 10*3/uL 0.33-0.92 = 742-7) EOS x10^3 (test code = 0.12 10*3/uL 0.03-0.39 711-2) BASO x10^3 (test code 0.04 10*3/uL 0.01-0.07 = 704-7) Lab Interpretation Abnormal (test code = 15678-2) [facility]ETAMINOPHEN2021-05-19 21:10:56 Test Item Value Reference Range Interpretation Comments ACETAMINOP (test code = <10.0 10.0-30.0 L 2351676782) BRINDA (test code = BRINDA) Toxic: Greater than 200 ug/mL @ 4 hour post ingestion or greater than 50 ug/mL @ 12 hour post ingestion Lab Interpretation (test Abnormal code = 16057-9) [facility] METABOLIC PANEL (79110)2020-07-16 21:10:41 Test Item Value Reference Range Interpretation Comments NA (test code = 138 mmol/L 135-145 2741988917) K (test code = 4.9 mmol/L 3.5-5.0 2496435030) CL (test code = 105 mmol/L 98-108 2822647855) CO2 TOTAL (test code 25 mmol/L 23-31 = 2139037189) AGAP (test code = 2-16 9686310483) BUN (test code = 18 mg/dL 7-23 1575382356) GLUCOSE (test code = 99 mg/dL 70-110 7380709484) CREATININE (test code 0.51 mg/dL 0.50-1.04 = 0710382467) TOTAL BILI (test code 0.2 mg/dL 0.1-1.1 = 2289507073) CALCIUM (test code = 9.4 mg/dL 8.6-10.6 0565253901) T PROTEIN (test code 7.6 g/dL 6.3-8.2 = 0753158039) ALBUMIN (test code = 3.9 g/dL 3.5-5.0 1150941194) ALK PHOS (test code = 72 U/L 34-122 7898916354) ALTv (test code = 23 U/L 5-35 1742-6) AST(SGOT) (test code 25 U/L 13-40 = 8040205338) eGFR (test code = mL/min/1.73m2 7659186467) BRINDA (test code = BRINDA) Association of Glomerular Filtration Rate (GFR) and Staging of Kidney Disease* + + +- +| GFR (mL/min/1.73 m2) ?| With Kidney Damage ?| ?Without Kidney Damage+ ------+ ----+ ------+| ?>90 ?| ?Stage one ?| ? Normal ?+ -+ + -+| ?60-89 ?| ?Stage two ?| ? Decreased GFR ? + + +- +| ?30-59 ?| ?Stage three ?| ? Stage three ? + + +- +| ?15-29 ?| ?Stage four ? | ? Stage four ?+ -+ + -+| ?<15 (or dialysis) ? ?| ?Stage five ? | ? Stage five ?+ -+ + -+ *Each stage assumes the associated GFR level has been in effect for at least three months. ?Stages 1 to 5, with or without kidney disease, indicate chronic kidney disease. Notes: Determination of stages one and two (with eGFR >59mL/min/1.73 m2) requires estimation of kidney damage for at least three months as defined by structural or functional abnormalities of the kidney, manifested by either:Pathological abnormalities or Markers of kidney damage (including abnormalities in the composition of the blood or urine or abnormalities in imaging tests). [facility] [id number] 21:10:41 Test Item Value Reference Range Interpretation Comments CK (test code = 1237719580) 50 U/L 33-194 Lab Interpretation (test code = Normal 07760-3) [facility] [id number] 23:58:00 Test Item Value Reference Range Interpretation Comments UA COLOR (test code = COLU) YELLOW UA APPEARANCE (test code = CLEAR APPU) UA GLUCOSE DIPSTICK (test NORMAL mg/dl NORMAL code = DGLUU) UA BILIRUBIN DIPSTICK (test NEGATIVE mg/dL NEGATIVE code = BILU) UA KETONE DIPSTICK (test NEGATIVE mg/dl NEGATIVE code = KETU) UA SPECIFIC GRAVITY (test 1.010 1.000-1.030 code = SGU) UA BLOOD DIPSTICK (test NEGATIVE Milton/micL NEGATIVE code = JOSE) UA PH DIPSTICK (test code = 7.0 5.0-9.0 FILIBERTO) UA PROTEIN DIPSTICK (test NEGATIVE mg/dl NEGATIVE code = PROU) UA UROBILINIOGEN DIPSTICK NORMAL mg/dl NORMAL (test code = URO) UA NITRITE DIPSTICK (test NEGATIVE NEGATIVE code = GINA) UA LEUKOCYTE ESTERASE NEGATIVE Vinayak/micL NEGATIVE DIPSTICK (test code = LEUU) UA WBC (test code = WBCU) 0-3 WBC/HPF NONE UA RBC (test code = RBCU) 0-2 RBC/HPF 0-3 UA EPITHELIAL CELLS (test 0-3 EPI/HPF 0-3 code = EPIU) UA BACTERIA (test code = FEW NONE BACU) UR HCG [id number] 23:58:00 Test Item Value Reference Range Interpretation Comments UR HCG QUAL (test code = HCGQLU) NEGATIVE NEGATIVE COMPREHENSIVE METABOLIC [id number] 21:37:00 Test Item Value Reference Range Interpretation Comments SODIUM (test code = NA) 134 mmol/l 134.0-147.0 N POTASSIUM (test code = 4.9 mmol/L 3.6-5.2 N K) CHLORIDE (test code = 101 mmol/l 98.0-107.0 N CL) CARBON DIOXIDE (test 27.7 mmol/l 21.0-33.0 N code = CO2) ANION GAP (test code = 10.2 0-20 N GAP) GLUCOSE (test code = 98 mg/dl 70.0-110.0 N WAITING FOR REDRAW, GLU) 2+HEMOLIZED BLOOD UREA NITROGEN 20 mg/dl 7.0-18.0 H (test code = BUN) CREATININE (test code = 0.72 mg/dL 0.60-1.30 N CREAT) GFR NON BLACK (test 101 mL/min 110-120 L code = GFRNONBLACK) GFR BLACK (test code = 123 mL/min 133-145 L GFRBLACK) TOTAL PROTEIN (test 7.8 GM/DL 6.0-8.1 N code = PROT) ALBUMIN (test code = 3.0 gm/dL 3.2-4.7 L ALB) CALCIUM (test code = 8.9 mg/dl 8.0-10.5 N CA) BILIRUBIN TOTAL (test 0.3 mg/dl 0.0-1.0 N code = BILT) SGOT/AST (test code = 41 Units/L 15-37 H AST) SGPT/ALT (test code = 32 Units/L 12.0-78.0 N ALT) ALKALINE PHOSPHATASE 71 Units/L 50.0-136.0 N TOTAL (test code = ALKP) [id number] 21:37:00 Test Item Value Reference Range Interpretation Comments LIPASE (test code = LIP) 74 Units/L 65.0-230.0 N B-TYPE NATRIURETIC [id number] 21:37:00 Test Item Value Reference Range Interpretation Comments B-TYPE NATRIURETIC PEPTIDE (test <5.0 PG/ML 5-100 L code = BNP) CARDIAC ENZYMES [id number] 21:37:00 Test Item Value Reference Range Interpretation Comments CREATINE KINASE (CK) 142 Units/L 21-215 N (test code = CK) TROPONIN-I (test code <0.02 NG/ML 0.00-0.06 N REFERE NCE RANGE = TROPI) TROPONIN I HEAL THY INDIVIDUALS: < 0.06 ng/mL R/O ISCHE BEVERLEY: 0.07 - 0.60 ng/ mL CUT-OFF RANGE F OR AMI: 0.60 - 1. 5 ng/mL [id number] 21:37:00 Test Item Value Reference Range Interpretation Comments ALCOHOL (test code 0.00 gm/dL 0.00-0.00 N ETHYL ALC OHOL VALUES - = ALC) INTERPRETATION: 0.050 GM/DL - NOT INT OXICATED 0.100 GM/DL - INTOXICATED 0.3 50-0.450 GM/DL - SEVEREL Y INTOXICATED 0.5 50 GM/DL- FATAL INTOXICAT ION COMPREHENSIVE METABOLIC [id number] 21:34:00 Test Item Value Reference Range Interpretation Comments SODIUM (test code = NA) 134 mmol/l 134.0-147.0 N POTASSIUM (test code = 4.9 mmol/L 3.6-5.2 N K) CHLORIDE (test code = 101 mmol/l 98.0-107.0 N CL) CARBON DIOXIDE (test 27.7 mmol/l 21.0-33.0 N code = CO2) ANION GAP (test code = 10.2 0-20 N GAP) GLUCOSE (test code = 98 mg/dl 70.0-110.0 N WAITING FOR REDRAW, GLU) 2+HEMOLIZED BLOOD UREA NITROGEN 20 mg/dl 7.0-18.0 H (test code = BUN) CREATININE (test code = 0.72 mg/dL 0.60-1.30 N CREAT) GFR NON BLACK (test 101 mL/min 110-120 L code = GFRNONBLACK) GFR BLACK (test code = 123 mL/min 133-145 L GFRBLACK) TOTAL PROTEIN (test 7.8 GM/DL 6.0-8.1 N code = PROT) ALBUMIN (test code = 3.0 gm/dL 3.2-4.7 L ALB) CALCIUM (test code = 8.9 mg/dl 8.0-10.5 N CA) BILIRUBIN TOTAL (test 0.3 mg/dl 0.0-1.0 N code = BILT) SGOT/AST (test code = Units/L 15-37 AST) SGPT/ALT (test code = 32 Units/L 12.0-78.0 N ALT) ALKALINE PHOSPHATASE 71 Units/L 50.0-136.0 N TOTAL (test code = ALKP) [id number] 21:34:00 Test Item Value Reference Range Interpretation Comments LIPASE (test code = LIP) 74 Units/L 65.0-230.0 N B-TYPE NATRIURETIC [id number] 21:34:00 Test Item Value Reference Range Interpretation Comments B-TYPE NATRIURETIC PEPTIDE (test <5.0 PG/ML 5-100 L code = BNP) CARDIAC ENZYMES [id number] 21:34:00 Test Item Value Reference Range Interpretation Comments CREATINE KINASE (CK) 142 Units/L 21-215 N (test code = CK) TROPONIN-I (test code <0.02 NG/ML 0.00-0.06 N REFERE NCE RANGE = TROPI) TROPONIN I HEAL THY INDIVIDUALS: < 0.06 ng/mL R/O ISCHE BEVERLEY: 0.07 - 0.60 ng/ mL CUT-OFF RANGE F OR AMI: 0.60 - 1. 5 ng/mL [id number] 21:34:00 Test Item Value Reference Range Interpretation Comments ALCOHOL (test code 0.00 gm/dL 0.00-0.00 N ETHYL ALC OHOL VALUES - = ALC) INTERPRETATION: 0.050 GM/DL - NOT INT OXICATED 0.100 GM/DL - INTOXICATED 0.3 50-0.450 GM/DL - SEVEREL Y INTOXICATED 0.5 50 GM/DL- FATAL INTOXICAT ION DRUGS OF ABUSE SCREEN [id number] 21:20:00 Test Item Value Reference Range Interpretation Comments URN COCAINE (test code NEGATIVE NEGATIVE Cocai ne cut-off = COCAURN) concentration: 300 ng/mL URN CANNABINOIDS (test NEGATIVE NEGATIVE Canna binoids cut-off code = CANNABURN) concentrat ion: 50 ng/mL URN AMPHETAMINE (test NEGATIVE NEGATIVE Amphet amine cut-off code = AMPHETURN) concentrat ion: 1000 ng/mL URN BARBITURATE (test NEGATIVE NEGATIVE Barbit urate cut-off code = BARBITURN) concentrat ion: 200 ng/mL URN BENZODIAZEPINE NEGATIVE NEGATIVE Benzodiaz epine cut-off (test code = BENZOURN) tiara ntration: 200 ng/mL URN OPIATES (test code NEGATIVE NEGATIVE Opiat es cut-off = OPIATURN) concentration: 2000 ng/mL URN PHENCYCLIDINE (PCP) NEGATIVE NEGATIVE Phen cyclidine(PCP) (test code = PHENCURN) cut-o ff concentration: 25 ng/ml URN METHADONE (test NEGATIVE NEGATIVE Methadon e cut-off code = METHAURN) concentrati on: 300 ng/mL COMPREHENSIVE METABOLIC [id number] 21:12:00 Test Item Value Reference Range Interpretation Comments SODIUM (test code = NA) mmol/l 134.0-147.0 POTASSIUM (test code = mmol/L 3.6-5.2 K) CHLORIDE (test code = mmol/l 98.0-107.0 N CL) CARBON DIOXIDE (test mmol/l 21.0-33.0 N code = CO2) ANION GAP (test code = 0-20 N GAP) GLUCOSE (test code = 98 mg/dl 70.0-110.0 N WAITING FOR REDRAW, GLU) 2+HEMOLIZED BLOOD UREA NITROGEN 20 mg/dl 7.0-18.0 H (test code = BUN) CREATININE (test code = 0.72 mg/dL 0.60-1.30 N CREAT) GFR NON BLACK (test 101 mL/min 110-120 L code = GFRNONBLACK) GFR BLACK (test code = 123 mL/min 133-145 L GFRBLACK) TOTAL PROTEIN (test 7.8 GM/DL 6.0-8.1 N code = PROT) ALBUMIN (test code = 3.0 gm/dL 3.2-4.7 L ALB) CALCIUM (test code = 8.9 mg/dl 8.0-10.5 N CA) BILIRUBIN TOTAL (test 0.3 mg/dl 0.0-1.0 N code = BILT) SGOT/AST (test code = Units/L 15-37 AST) SGPT/ALT (test code = 32 Units/L 12.0-78.0 N ALT) ALKALINE PHOSPHATASE 71 Units/L 50.0-136.0 N TOTAL (test code = ALKP) [id number] 21:12:00 Test Item Value Reference Range Interpretation Comments LIPASE (test code = LIP) 74 Units/L 65.0-230.0 N B-TYPE NATRIURETIC [id number] 21:12:00 Test Item Value Reference Range Interpretation Comments B-TYPE NATRIURETIC PEPTIDE (test <5.0 PG/ML 5-100 L code = BNP) CARDIAC ENZYMES [id number] 21:12:00 Test Item Value Reference Range Interpretation Comments CREATINE KINASE (CK) 142 Units/L 21-215 N (test code = CK) TROPONIN-I (test code <0.02 NG/ML 0.00-0.06 N REFERE NCE RANGE = TROPI) TROPONIN I HEAL THY INDIVIDUALS: < 0.06 ng/mL R/O ISCHE BEVERLEY: 0.07 - 0.60 ng/ mL CUT-OFF RANGE F OR AMI: 0.60 - 1. 5 ng/mL [id number] 21:12:00 Test Item Value Reference Range Interpretation Comments ALCOHOL (test code 0.00 gm/dL 0.00-0.00 N ETHYL ALC OHOL VALUES - = ALC) INTERPRETATION: 0.050 GM/DL - NOT INT OXICATED 0.100 GM/DL - INTOXICATED 0.3 50-0.450 GM/DL - SEVEREL Y INTOXICATED 0.5 50 GM/DL- FATAL INTOXICAT ION COMPREHENSIVE METABOLIC [id number] 21:08:00 Test Item Value Reference Range Interpretation Comments SODIUM (test code = NA) mmol/l 134.0-147.0 POTASSIUM (test code = mmol/L 3.6-5.2 K) CHLORIDE (test code = mmol/l 98.0-107.0 N CL) CARBON DIOXIDE (test mmol/l 21.0-33.0 N code = CO2) ANION GAP (test code = 0-20 N GAP) GLUCOSE (test code = 98 mg/dl 70.0-110.0 N WAITING FOR REDRAW, GLU) 2+HEMOLIZED BLOOD UREA NITROGEN 20 mg/dl 7.0-18.0 H (test code = BUN) CREATININE (test code = 0.72 mg/dL 0.60-1.30 N CREAT) GFR NON BLACK (test 101 mL/min 110-120 L code = GFRNONBLACK) GFR BLACK (test code = 123 mL/min 133-145 L GFRBLACK) TOTAL PROTEIN (test 7.8 GM/DL 6.0-8.1 N code = PROT) ALBUMIN (test code = 3.0 gm/dL 3.2-4.7 L ALB) CALCIUM (test code = 8.9 mg/dl 8.0-10.5 N CA) BILIRUBIN TOTAL (test 0.3 mg/dl 0.0-1.0 N code = BILT) SGOT/AST (test code = Units/L 15-37 AST) SGPT/ALT (test code = 32 Units/L 12.0-78.0 N ALT) ALKALINE PHOSPHATASE 71 Units/L 50.0-136.0 N TOTAL (test code = ALKP) [id number] 21:08:00 Test Item Value Reference Range Interpretation Comments LIPASE (test code = LIP) 74 Units/L 65.0-230.0 N B-TYPE NATRIURETIC [id number] 21:08:00 Test Item Value Reference Range Interpretation Comments B-TYPE NATRIURETIC PEPTIDE (test code PG/ML 5-100 = BNP) CARDIAC ENZYMES [id number] 21:08:00 Test Item Value Reference Range Interpretation Comments CREATINE KINASE (CK) 142 Units/L 21-215 N (test code = CK) TROPONIN-I (test code <0.02 NG/ML 0.00-0.06 N REFERE NCE RANGE = TROPI) TROPONIN I HEAL THY INDIVIDUALS: < 0.06 ng/mL R/O ISCHE BEVERLEY: 0.07 - 0.60 ng/ mL CUT-OFF RANGE F OR AMI: 0.60 - 1. 5 ng/mL [id number] 21:08:00 Test Item Value Reference Range Interpretation Comments ALCOHOL (test code = ALC) gm/dL 0.00-0.00 CBC W/AUTO [id number] 21:05:00 Test Item Value Reference Range Interpretation Comments WHITE BLOOD CELL (test code = 7.3 K/mm3 4.5-11.0 N WBC) RED BLOOD CELL (test code = 4.71 M/mm3 3.80-5.20 N RBC) HEMOGLOBIN (test code = HGB) 10.9 gm/dL 12.0-16.0 L HEMATOCRIT (test code = HCT) 36.5 % 36.0-48.0 N MEAN CELL VOLUME (test code = 77.5 UM3 82.0-99.0 L MCV) MEAN CELL HGB (test code = MCH) 23.1 UUG 25.5-32.5 L MEAN CELL HGB CONCETRATION 29.9 gm/dL 29.0-35.5 N (test code = MCHC) RED CELL DISTRIBUTION WIDTH 17.2 % 11.5-15.0 H (test code = RDW) RED CELL DISTRIBUTION WIDTH SD 48.1 fL 34.8-50.2 N (test code = RDW-SD) PLATELET COUNT (test code = 483 K/mm3 150-400 H PLT) MEAN PLATELET VOLUME (test code 11.4 fl 7.4-10.4 H = MPV) NEUTROPHIL % (test code = NT%) 54.4 % 49.0-76.0 N IMMATURE GRANULOCYTE % (test 0.3 % 0.0-0.4 N code = IG%) LYMPHOCYTE % (test code = LY%) 38.5 % 23.0-38.0 H MONOCYTE % (test code = MO%) 4.8 % 1.0-10.0 N EOSINOPHIL % (test code = EO%) 1.5 % 1.0-5.0 N BASOPHIL % (test code = BA%) 0.5 % 0.0-1.0 N NUCLEATED RBC % (test code = 0.0 % 0.0-0.1 N NRBC%) NEUTROPHIL # (test code = NT#) 4.0 K/mm3 2.4-6.3 N IMMATURE GRANULOCYTE # (test 0.02 x10 3/uL 0.00-0.07 N code = IG#) LYMPHOCYTE # (test code = LY#) 2.8 K/mm3 1.2-4.0 N MONOCYTE # (test code = MO#) 0.4 K/mm3 0.0-0.6 N EOSINOPHIL # (test code = EO#) 0.1 K/MM3 0.0-0.7 N BASOPHIL # (test code = BA#) 0.0 K/mm3 0.0-0.2 N NUCLEATED RBC # (test code = 0.00 X10 3uL 0.00-0.01 N NRBC#) PLATELET ESTIMATE (test code = INCREASED PLTEST) URINALYSIS [id number] 21:02:00 Test Item Value Reference Range Interpretation Comments UA COLOR (test code = COLU) YELLOW UA APPEARANCE (test code = CLEAR APPU) UA GLUCOSE DIPSTICK (test NORMAL mg/dl NORMAL code = DGLUU) UA BILIRUBIN DIPSTICK (test NEGATIVE mg/dL NEGATIVE code = BILU) UA KETONE DIPSTICK (test NEGATIVE mg/dl NEGATIVE code = KETU) UA SPECIFIC GRAVITY (test 1.010 1.000-1.030 code = SGU) UA BLOOD DIPSTICK (test NEGATIVE Milton/micL NEGATIVE code = JOSE) UA PH DIPSTICK (test code = 7.0 5.0-9.0 FILIBERTO) UA PROTEIN DIPSTICK (test NEGATIVE mg/dl NEGATIVE code = PROU) UA UROBILINIOGEN DIPSTICK NORMAL mg/dl NORMAL (test code = URO) UA NITRITE DIPSTICK (test NEGATIVE NEGATIVE code = GINA) UA LEUKOCYTE ESTERASE NEGATIVE Vinayak/micL NEGATIVE DIPSTICK (test code = LEUU) UA WBC (test code = WBCU) WBC/HPF NONE UA RBC (test code = RBCU) RBC/HPF 0-3 UA EPITHELIAL CELLS (test EPI/HPF 0-3 code = EPIU) UA BACTERIA (test code = NONE BACU) UR HCG [id number] 21:02:00 Test Item Value Reference Range Interpretation Comments UR HCG QUAL (test code = HCGQLU) NEGATIVE NEGATIVE URINALYSIS [id number] 21:01:00 Test Item Value Reference Range Interpretation Comments UA COLOR (test code = COLU) YELLOW UA APPEARANCE (test code = CLEAR APPU) UA GLUCOSE DIPSTICK (test NORMAL mg/dl NORMAL code = DGLUU) UA BILIRUBIN DIPSTICK (test NEGATIVE mg/dL NEGATIVE code = BILU) UA KETONE DIPSTICK (test NEGATIVE mg/dl NEGATIVE code = KETU) UA SPECIFIC GRAVITY (test 1.010 1.000-1.030 code = SGU) UA BLOOD DIPSTICK (test NEGATIVE Milton/micL NEGATIVE code = JOSE) UA PH DIPSTICK (test code = 7.0 5.0-9.0 FILIBERTO) UA PROTEIN DIPSTICK (test NEGATIVE mg/dl NEGATIVE code = PROU) UA UROBILINIOGEN DIPSTICK NORMAL mg/dl NORMAL (test code = URO) UA NITRITE DIPSTICK (test NEGATIVE NEGATIVE code = GINA) UA LEUKOCYTE ESTERASE NEGATIVE Vinayak/micL NEGATIVE DIPSTICK (test code = LEUU) UA WBC (test code = WBCU) WBC/HPF NONE UA RBC (test code = RBCU) RBC/HPF 0-3 UA EPITHELIAL CELLS (test EPI/HPF 0-3 code = EPIU) UA BACTERIA (test code = NONE BACU) UR HCG [id number] 21:01:00 Test Item Value Reference Range Interpretation Comments UR HCG QUAL (test code = HCGQLU) NEGATIVE PROTHROMBIN [id number] 20:58:00 Test Item Value Reference Range Interpretation Comments PROTHROMBIN TIME 11.2 SECONDS 9.9-12.8 N PATIENT (test code = PTP) INTERNATIONAL NORMAL 0.9 0.89-1.14 N THE INR IS TO BE USED RATIO (test code = ONLY FOR MONITORING INR) ORAL ANTICOAGULANTTH ERAPY. THE FOLLOWING A RE SUGGESTED RANGE [facility]:TIERRA CATION INR VALUEPROPHYLAXI S OF VENOUS THROMBOS IS (ORTHOPEDIC JOHANN STEVENSON) 2.0 - 3.0PROP HYLAXIS OF VENOUS THROM BOSIS (OTHER THAN HIG H-RISK SURGERY) 2.0 - 3.0TRE ATMENT OF DEEP VEIN THROMBOSIS OR PULMONARY EMBOL ISM 2.0 - 3.0PREV ENTION OF SYSTEMIC EMB OLISM TISSUE HEART VA LVES 2.0 - 3.0 AC NELSON MYOCARDIAL INFA RCTION (TO PREVENT SYSTEMIC EMBOLI SM) 2.0 - 3.0 ACUTE MYOCARDIA L INFARCTION (TO PREVENT RECURRE NT INFARCT) 2.5 - 3.0 VALV ULAR HEART DISEASE 2.0 - 3.0 ATRIAL FIBRILATION 2.0 - 3.0BILEAFLET MECHANICAL VALV E IN AORTIC POSITION 2.0 - 3.0MECHAN ICAL PROSTHETIC VALV ES (HIGH RISK) 2.5 - 3.5PRESEN CE OF LUPUS ANTICOAGU LANT OR ANTIPHOSPHOLIP ID ANTIBODIES 2.5 - 3 .5 THROMBOPLASTIN TIME [id number] 20:58:00 Test Item Value Reference Range Interpretation Comments THROMBOPLASTIN TIME 31.90 SECONDS 25.86-36.07 N [place] d Lab PARTIAL (test code = Therape utic Range - PTT) APTT of 55.8-85 .4 secondscorrelat es with plasma heparin concentration o f 0.2-0.4 u/mL Ne w range effective - D-DIMER/[id number] 20:58:00 Test Item Value Reference Range Interpretation Comments D-DIMER/FSP 253 ng/mLFEU 0-500 N Thrombosis and/ or Pulmonary (test code = Embolism and th e DDIMER) clinicalcut-off value for exclusion (500 ng/mL FEU) of theseconditions is validated by the manufact urer of the method. A negat dm D-Dimer result when com bined with a clinicalassessm ent of low pretest probabi lity has been shown to havea high negative predictive valu e of DVT or PE. D-Dimer mian ues >500 ng/mL FEU are n ot diagnostic for DVT,PE, or DIC without other confirmat ory tests and appropriateclin ical evaluations. CBC W/AUTO [id number] 20:50:00 Test Item Value Reference Range Interpretation Comments WHITE BLOOD CELL (test code = 7.3 K/mm3 4.5-11.0 N WBC) RED BLOOD CELL (test code = 4.71 M/mm3 3.80-5.20 N RBC) HEMOGLOBIN (test code = HGB) 10.9 gm/dL 12.0-16.0 L HEMATOCRIT (test code = HCT) 36.5 % 36.0-48.0 N MEAN CELL VOLUME (test code = 77.5 UM3 82.0-99.0 L MCV) MEAN CELL HGB (test code = MCH) 23.1 UUG 25.5-32.5 L MEAN CELL HGB CONCETRATION 29.9 gm/dL 29.0-35.5 N (test code = MCHC) RED CELL DISTRIBUTION WIDTH 17.2 % 11.5-15.0 H (test code = RDW) RED CELL DISTRIBUTION WIDTH SD 48.1 fL 34.8-50.2 N (test code = RDW-SD) PLATELET COUNT (test code = 483 K/mm3 150-400 H PLT) MEAN PLATELET VOLUME (test code 11.4 fl 7.4-10.4 H = MPV) NEUTROPHIL % (test code = NT%) 54.4 % 49.0-76.0 N IMMATURE GRANULOCYTE % (test 0.3 % 0.0-0.4 N code = IG%) LYMPHOCYTE % (test code = LY%) 38.5 % 23.0-38.0 H MONOCYTE % (test code = MO%) 4.8 % 1.0-10.0 N EOSINOPHIL % (test code = EO%) 1.5 % 1.0-5.0 N BASOPHIL % (test code = BA%) 0.5 % 0.0-1.0 N NUCLEATED RBC % (test code = 0.0 % 0.0-0.1 N NRBC%) NEUTROPHIL # (test code = NT#) 4.0 K/mm3 2.4-6.3 N IMMATURE GRANULOCYTE # (test 0.02 x10 3/uL 0.00-0.07 N code = IG#) LYMPHOCYTE # (test code = LY#) 2.8 K/mm3 1.2-4.0 N MONOCYTE # (test code = MO#) 0.4 K/mm3 0.0-0.6 N EOSINOPHIL # (test code = EO#) 0.1 K/MM3 0.0-0.7 N BASOPHIL # (test code = BA#) 0.0 K/mm3 0.0-0.2 N NUCLEATED RBC # (test code = 0.00 X10 3uL 0.00-0.01 N NRBC#) - XR CHEST 1 [id number] 20:27:00 [facility] 1990 Sex: F FAX: Rosa Bello MD [place]: St: PRE Name: RIKGARY [facility] : 1990 Age/S: 29/F [address] [facility] Unit #: [id number] Loc: [address] Phys: [place] [id number] Acct: [id number] Dis Date: Status: PRE ER PHONE #: [phone] Exam Date: 07/15/20202024 FAX #: [phone] Reason: CP EXAMS: CPT CODE: [id number] XR CHEST1 V [id number] EXAM: - XR CHEST 1 V HISTORY: Chest pain. FINDINGS: Single AP view of the chest is provided. Heart size and vascularity are within normal limits. There is no evidence of a focal consolidation. There is no pleural effusion or pneumothorax. There is no definite acute osseous abnormality. IMPRESSION: No radiographic evidence of acute cardiopulmonary process. at 2026 Reported and signed by: Saad Kong M.D. CC: Rosa Mckinnon MD Technologist: ELENA SINGLETON Trnscrd Date/Time/By: 07/15/2020 (2026) : By: [email or web address] PAGE 1 Signed Report FAX: Zaid Bello MD [place]: St: PRE Name: GARY BROWN [facility] : 1990 Age/S: 29/F [address] [facility] Unit #: [id number] Loc: E.ERS2 [place], [place]: [place] [id number] Acct: [id number] Dis Date: Status: PRE ER PHONE #: [phone] Exam Date: 07/15/20202024 FAX #: [phone] Reason: CP EXAMS: CPT CODE: [id number] XR CHEST 1 V [id number] <Continued> Orig Print D/T: S: 07/15/2020 (2029) PAGE 2 Signed ReportPOCT [id number] 23:22:00 Test Item Value Reference Range Interpretation Comments POCT PREG (test code = 1605) negative On board controls acceptable with present C Line (test code = 3574) POCT PREG LOT # (test code = 3575) [id number] POCT PREG TEST DATE (test 11/27/2021 code = 3576) Lab Interpretation (test code = Normal 36086-8) [facility] [id number] 16:11:27 Mild peribronchial cuffing which could be due to bronchialhyperreactivity/bronchitis. Otherwise no evidence of acute cardiopulmonaryprocess. Giuliana Redd MD., have reviewed this study and agree with theabove report.EXAM: XR CHEST 1 VW 04/18/2020 9:44 AM HISTORY: 29 years-old Female with r/o pna, cough x 2 months TECHNIQUE: Portable AP view of the chest. COMPARISON: None FINDINGS: Lungs and pleura: The lungs are clear and well-expanded. Mild peribronchialcuffing is noted. No focal consolidation, pneumothorax, or pleural effusionis seen. High density of the lower lungs is likely due to superimposed softtissues Cardiomediastinal: The cardiomediastinal silhouette is unremarkable. Musculos keletal: No acute osseous abnormality. [facility], Radiant Results Inft User - 04/18/2020 10:28 AM CSTEXAM: XR CHEST 1 VW 04/18/2020 9:44 AMHISTORY: 29 years- old Female with r/o pna, cough x 2 monthsTECHNIQUE: Portable AP view of the chest. COMPARISON: NoneFINDINGS: Lungs and pleura: The lungs are clear and well- expanded. Mild peribronchialcuffing is noted. No focal consolidation, pneumothorax, or pleural effusionis seen. High density of the lower lungs is likely due to superimposed softtissuesCardiomediastinal: The cardiomediastinal silhouette is unremarkable.Musculoskeletal: No acute osseous abnormality. IMPRESSIONMild peribronchial cuffing which could be due to bronchialhyperreactivity/bronchitis. Otherwise no evidence of acute cardiopulmonaryprocess.Giuliana Redd MD., have reviewed this study and agree with theabove report.[facility] 2020-04-18 16:09:00 Test Item Value Reference Range Interpretation Comments APPEARANCE (test code = Clear Clear 2523514907) COLOR (test code = Straw Yellow A 4444704058) PH (test code = 4.8-8.0 5065773112) SP GRAVITY (test code = 1.003-1.030 1818097839) GLU U QUAL (test code = Normal Normal 3821667619) BLOOD (test code = Negative Negative 7011523266) KETONES (test code = Negative Negative 2102898514) PROTEIN (test code = Negative Negative 2887-8) UROBILIN (test code = Normal Normal 4713735440) BILIRUBIN (test code = Negative Negative 2630877006) NITRITE (test code = Negative Negative 5999661965) LEUK MARK (test code = Negative Negative 2418617460) RBC/HPF (test code = See_Comment [Autom ated message] 9724914557) The system [employer] generated this result transmitted ref erence range: 0 - 3 HP F. The reference range was not used to int erpret this result as normal/abnormal . WBC/HPF (test code = See_Comment [Autom ated message] 4544200053) The system [employer] generated this result transmitted ref erence range: 0 - 5 HP F. The reference range was not used to int erpret this result as normal/abnormal . BACTERIA (test code = Negative Negative 8388374339) SQ EPITH (test code = <1 See_Comment [Auto mated message] [id number]) The system [employer] generated this result transmitted ref erence range: <=2 HPF. The reference range was not used to int erpret this result as normal/abnormal . Lab Interpretation (test Abnormal code = 38705-3) [facility] [id number] 15:55:00 Test Item Value Reference Range Interpretation Comments POCT PREG (test code = 1605) Negative On board controls acceptable with Present C Line (test code = 3574) POCT PREG LOT # (test code = 3575) [id number] POCT PREG TEST DATE (test 11/27/2021 code = 3576) Lab Interpretation (test code = Normal 09171-6) [facility]KLE 3 + V [id number] 22:24:00 FAX: Riley Van NP [phone] [place]: [address]: REG Name: [facility] Angela Kumari : 1990 Age/S: 27/F [address] [place] [address] Unit#: [id number] Loc: [place] [address] Phys: Riley Van NP Acct: [id number] Dis Date: Status: REG ER PHONE #: [phone] Exam Date: 06/04/20182217 FAX #: [phone] Reason: L ankle pain x 1 week EXAMS: CPT CODE: [id number] XR ANKLE 3 + V LT 77733 LEFT ANKLE, 3 VIEWS: HISTORY: Acute left ankle pain. COMPARISON EXAMS: None available. FINDINGS: The ankle joint is well-preserved. The syndesmosis and ankle mortise are intact. An accessory ossicle is projected adjacent to the cuboid. IMPRESSION: No acute bony abnormality identified. SL:01 at 2224 Reported and signed by: Rik Lopez M.D. CC: Riley Van NP Technologist: RT Geri(Marita) Trnscrd Date/Time/By: 06/04/2018 (2223) : By: PaulaJ Orig Print D/T: S: 06/04/2018 (3494) PAGE 1 Signed Report"
== END 2020-12-29 20:28 | disposition home or self-care (01) ==
LOC: ER 15:48
DX: R07.9 Chest pain, unspecified (principal); I10 Essential (primary) hypertension; Z20.822 Contact with and (suspected) exposure to COVID-19; Z88.1 Allergy status to other antibiotic agents; Z88.8 Allergy status to other drugs, medicaments and biological substances
CPT/HCPCS: 36415; 71046; 84484; 87804; 93005; 99284; U0003